=== PATIENT | female | born 1970 | race Caucasian/White ===

== ENCOUNTER 2017-09-02 08:46 | Day surgery (SDC) | payer SELFPAY ==
[2017-08-27 10:13] LABS: HEMATOCRIT 35.1 % (36.0-47.0); HEMOGLOBIN 12.3 g/dL (12.0-15.5); HGB HCT DIFFERENCE 1.8; MEAN CORPUSCULAR HEMOGLOBIN 34.1 pg (27.0-33.4); MEAN CORPUSCULAR HGB CONC 35.1 g/dL (32.0-36.0); MEAN CORPUSCULAR VOLUME 97 fl (80-97); RED CELL DISTRIBUTION WIDTH 12.6 % (11.5-14.0); WHITE BLOOD COUNT 8.6 10^3/uL (4.0-10.5)
[2017-08-27 10:46] LABS: ANION GAP 14 (5-19); BLOOD UREA NITROGEN 7 mg/dL (7-20); CALCIUM 9.4 mg/dL (8.4-10.2); CARBON DIOXIDE 19 mmol/L (22-30); CHLORIDE 103 mmol/L (98-107); GLUCOSE 81 mg/dL (75-110); POTASSIUM 4.4 mmol/L (3.6-5.0); SODIUM 136.3 mmol/L (137-145)
--- NOTE | 2017-08-27 12:40 | RADIOLOGY REPORT (SQ) ---
EXAM DESCRIPTION: CHEST PA/LATERAL COMPLETED DATE/TIME: 08/27/2017 11:01 am REASON FOR STUDY: PRE OP COMPARISON: None. NUMBER OF VIEWS: Two view. TECHNIQUE: Frontal and lateral radiographic views of the chest acquired. LIMITATIONS: None. FINDINGS: LUNGS AND PLEURA: No opacities, masses or pneumothorax. No pleural effusion. MEDIASTINUM AND HILAR STRUCTURES: No masses or contour abnormalities. HEART AND VASCULATURE: Heart normal size. No evidence for failure. BONY STRUCTURES: Old healed rib fracture right 5th lateral rib. Old healed rib fractures left 6th a nd 9th lateral ribs. HARDWARE: None. OTHER: No other significant finding. IMPRESSION: . No active cardiopulmonary disease. Old bilateral healed rib fractures. TECHNICAL DOCUMENTATION: JOB ID: [id number] [employer]- All Rights Reserved
[~2017-09-02 08:46] MED LIST: DEXTROSE 5%-LACTATED RINGERS 1,000 ML IV PRN; LACTATED RINGERS 1000 ML IV PRN; LIDOCAINE 0.5% INJ-PF (5 MG/ML) 50 ML SDV SUBCUT PRN; LIDOCAINE 4% TRANSPARENT DRESSING 5 GM KIT TP PRN
[2017-09-02] MEDS ORDERED: CLINDAMYCIN 900 MG/D5W RTU 50 ML IV PRN (09:31)
[2017-09-02] MEDS ORDERED: LIDOCAINE 1%/EPINEPHRINE INJ 20 ML VIAL ONE (10:06)
[2017-09-02] MEDS ORDERED: MICROFIBRILLAR COLLAGEN 1 GM PACK ONE (10:06)
[2017-09-02] MEDS ORDERED: METHYLENE BLUE 50 MG/10 ML AMPULE ONE (10:06)
[2017-09-02] MEDS ORDERED: SUCCINYLCHOLINE CHLORIDE INJ 200 MG/10 ML VIAL ONE (10:48)
[2017-09-02] MEDS ORDERED: ONDANSETRON HCL INJ/PF 4 MG/2 ML SDV ONE (10:48)
[2017-09-02] MEDS ORDERED: LIDOCAINE 2% INJ-PF (20 MG/ML) 10 ML AMPUL ONE (10:48)
[2017-09-02] MEDS ORDERED: DEXAMETHASONE SOD PHOSPHATE INJ 4 MG/1 ML VIAL ONE (10:48)
--- NOTE | 2017-09-02 11:40 | RADIOLOGY REPORT (SQ) ---
EXAM DESCRIPTION: NM LYMPHATICS/LYMPH GLANDS COMPLETED DATE/TIME: 09/02/2017 11:12 am REASON FOR STUDY: RT BREAST CANCER, SENTINAL NODE IMAGING C50.911 MALIGNANT NEOPLASM OF UNSP SITE O F RIGHT FEMALE JANNET COMPARISON: None. RADIONUCLIDE AND DOSE: 537 microcuries TC-[id number] - [employer]. The route of agent administration: Subcutaneous in the skin. TECHNIQUE: The skin of the right breast was prepped in sterile fashion. The radiopharmaceutical was administered in equally divided doses in the periareolar breast, from 6 o'clock to the 12 o'clock po sition LIMITATIONS: None. FINDINGS: Images demonstrate activity at the injection site. There is migration of activity towards the right axilla. [place] node marked on the patient's skin. IMPRESSION: ADMINISTRATION OF RADIOPHARMACEUTICAL FOR SENTINEL LYMPH NODE EVALUATION. TECHNICAL DOCUMENTATION: JOB ID: [id number] [employer]- All Rights Reserved
[2017-09-02] MEDS ORDERED: FENTANYL CITRATE INJ/PF 100 MCG/2 ML AMPUL ONE (12:40)
[2017-09-02] MEDS ORDERED: ACETAMINOPHEN 100 ML IV ONE (12:41)
[2017-09-02] MEDS ORDERED: HYDROMORPHONE HCL INJ/PF 2 MG/ML AMPULE ONE (12:41)
[2017-09-02] MEDS ORDERED: PROPOFOL INJ 200 MG/20 ML VIAL IV ONE (12:41)
[2017-09-02] MEDS ORDERED: MIDAZOLAM 2 MG/2 ML INJ ONE (12:41)
[2017-09-02] MEDS ORDERED: SCOPOLAMINE HYDROBROMIDE 1.5 MG PATCH.TD72 ONE (12:48)
[2017-09-02] MEDS ORDERED: LIDOCAINE 2% INJ-PF (20 MG/ML) 2 ML AMPUL ONE (14:08)
[2017-09-02] MEDS ORDERED: PROMETHAZINE HCL INJ 25 MG/1 ML VIAL IV PRN (14:19)
[2017-09-02] MEDS ORDERED: MORPHINE SULFATE 10 MG/ML INJ IV PRN (14:19)
[2017-09-02] MEDS ORDERED: FENTANYL CITRATE INJ/PF 100 MCG/2 ML AMPUL IV PRN ×3 (14:19)
[2017-09-02] MEDS ORDERED: DIPHENHYDRAMINE HCL 50 MG/ML VIAL IV PRN (14:19)
[2017-09-02] MEDS ORDERED: MEPERIDINE HCL/PF INJ 25 MG/1 ML DISP.SYRIN IV PRN (14:19)
--- NOTE | 2017-09-02 15:26 | PDOC DISCHARGE SUMMARY ---
Discharge Summary (SDC) - Discharge Final Diagnosis: Right breast cancer Date of Surgery: 09/02/17 Discharge Date: 09/02/17 Condition: Stable Treatment or Instructions: [facility] [address] [place] [id number] Care Instructions Following Your Mastectomy Activities: Resume normal activities when you feel comfortable. It is best to remain as active as possible to speed your recovery. It is common to experience some fatigue after surgery and you may find that short naps are helpful. Avoid strenuous activity such as weight lifting, tennis, etc at your surgical site for two weeks. Perform gentle arm exercises daily and do not favor your operative arm to due increased risk of mobility issues postoperatively. No driving for 7 days after surgery. Do not drive if you are taking pain medication other than Tylenol or Ibuprofen. No swimming, tub baths or soaking in a hot tub for 4 weeks. There are no dietary restrictions. Do not smoke as this impairs wound healing. Surgical Site care: Remove your dressing 48 hours after surgery. Leave the steri-strips underneath in place. You may shower after removing the dressing to include washing the wound with soap and water using your hands. Do not scrub the incision. Pat the area dry with a towel. You do not need to recover the wound although some patients find that they feel more comfortable using a light dressing for a few days to absorb any minimal drainage which may occur. Many patients also find that keeping a dressing around the drain exit site is helpful to absorb any drainage which may leak around the tubing. If you use a dressing in this manner change it at least every day. Do not use heating pad or apply an ice pack to the operative site. You may apply deodorant if you are careful to avoid getting it on the wound itself. Empty the bulbs attached to the drain every 12 hours and measure the fluid output separately from each drain. Please also strip each drain each time you empty it to prevent clogging. Keep a record of the output and bring this record with you each time you come to the office for postoperative care. A drain is ready to be removed when its output is 30 mL per 24 hours per drain for 2 consecutive days. Please call the office to inform our staff that you need to come in for drain removal. Medications: Take Motrin (ibuprofen) 600 mg to 800 mg every 8 hours around the clock. You may taper this medication as you experience less pain. Take narcotic pain control such as Tylenol #3 or Percocet one to tablets every six hours as needed for breakthrough pain. Do not take over the counter Tylenol if you are taking either Tylenol #3 or Percocet. Again, you cannot drive while taking narcotic pain medication. Resume all of your normal prescription medications after your surgery unless instructed otherwise. You may experience constipation after surgery while taking pain medications. If using a narcotic on a regular basis, take a stool softener such as Colace twice a day. It is helpful to stay hydrated by drinking lots of fluids. Walking is also helpful and is good exercise after surgery. If you need extra help, use Milk of Magnesia according to the directions on the package. Follow-up: Call our office at to make a follow-up appointment in 10-14 days. Your doctor will call to discuss the pathology report with you as soon as it is available. Concerns: If you had a sentinel lymph node biopsy with your mastectomy, your urine may have a greenish discoloration. This is normal and will resolve as the blue dye slowly leaves your system. If you notice significant leakage around the drains , this is not normal. The drains may be clogged. Please call our office to come in immediately for the drains to be checked. Some bruising may occur and will go away over time. If you have a fever of 101.5 or greater, chills, redness at the incision site, excessive drainage from your wound or severe pain not relieved by pain medication, call your doctor. A physician is available 24 hours a day 7 days a week in addition to regular office hours. If problems arise after normal office hours please call the hospital at . Please call if you have any questions or concerns. Prescriptions: Oxycodone HCl/Acetaminophen [Percocet 5-325 mg Tablet] 1 tab PO Q6 PRN #20 tab PRN Reason: Referrals: AIDA MOISE MD [ACTIVE STAFF] - Discharge Diet: As Tolerated Discharge Activity: No Lifting/Push/Pulling, Walk Frequently Report the Following to Your Physician Immediately: Fever over 101 Degrees, Unusual Bleeding, Redness, Swelling
--- NOTE | 2017-09-02 15:27 | Operative Report ---
Operative Report DATE OF SURGERY: 09/02/17 PREOPERATIVE DIAGNOSIS: Invasive ductal carcinoma right breast, ER positive, IL positive, HER-2 negative POSTOPERATIVE DIAGNOSIS: Same OPERATION: 1. Right mastectomy with drain placement. 2. [place] lymph node biopsy right axilla 3. 3. Lymph node biopsy right axilla 4( non-sentinel lymph nodes) SURGEON: AIDA CUMMINGS COTTAGE CHEESE MAKER: JACQUELINE PRICE ANESTHESIA: GA TISSUE REMOVED OR ALTERED: Right breast; multiple sentinel nodes; probable non- sentinel lymph nodes COMPLICATIONS: None ESTIMATED BLOOD LOSS: 5 cc INTRAOPERATIVE FINDINGS: See below PROCEDURE: Patient was seen in the preop holding area with the right breast was marked. She underwent lymphoscintigraphy of the right breast and axilla with successful mapping of double lymph nodes in the right axilla. The patient was taken directly to the operating room where she underwent general anesthesia. The right axilla was exposed, the right breast and axilla were prepped and draped in sterile fashion. Approximately 3 cc of concentrated methylene blue was injected into the right breast, intradermal, 10 o'clock position air areolar border. Surgical plan and surgical timeout were conducted. Markings were made on the skin in elliptical fashion for standard right mastectomy. The skin was anesthetized with 1% plain lidocaine. The breast was excised in elliptical fashion as marked with a #10 blade. Superior and inferior skin flaps were raised, taking the level of the dissection down to the infraclavicular area superiorly, parasternal tissue medially, and the serratus anterior muscle inferiorly. The breast was taken off of the chest wall using electrocautery, taking the superficial pectoralis fascia with it. Retraction was applied to the lateral flap, and the loose filmy tissue was taken down between the lateral flap and the tail of García. We now began the sentinel lymph node harvest. Using the neoprobe as a guide, and the successful blue dye mapping, we proceeded to harvest 3 level 1 sentinel lymph nodes. The first had an in vivo count of 11,953 and an ex vivo count of 4959. The sentinel node was blue and hot, and of average size less than a centimeter. The second sentinel lymph node identified in the same area, 1, was also hot and blue. In vivo count was 2859 and an ex vivo count of 13,656. Attached to this average appearing lymph node was a cluster of enlarged lymph nodes that felt more substantive and matted compared to the previously harvested first 2 sentinel lymph nodes. We elected to remove this cluster of lymph nodes and in fact one was bivalved on the back table. It appeared to have a fatty limb and a early normal cortex. The specimen is a conglomerate was sent as non-sentinel lymph nodes right axilla and touch prep was performed by pathologist Dr. Hi. We spoke to her and she informed us that the lymph nodes appeared on touch prep to be benign. We proceeded to harvest a third level 1 sentinel lymph node which is very small blue and hot with an in vivo count of 1180 and an ex vivo count of 5685. It was sent as the third lymph node from the axilla. The mastectomy specimen was taken out of the axilla from its final attachments labeled with a long suture in the lateral position short suture in the superior position and sent to Dr. Hi fresh he looked at it and concluded that the tumor was within the specimen, with the closest margin approximately 5 mm from the posterior wall which would be against the pectoralis major. For the tumor was felt to be encapsulated within the target specimen and no further resection was indicated. A drain was placed in the inferior skin flap laterally, large Terence secured to the skin with 2-0 Prolene suture, skin flaps elevated, then closed under a mild to moderate amount of tension with 2-0 Vicryl and a 2-0 running Vicryl as well. Skin glue was applied. Patient tolerated the procedure well, extubated and taken recovery in stable condition. The physician clerical assistant, Ms. Belcher, provided assistance during this case by: Assisting with port insertion, retracting tissue, instillation of local anesthesia and closure of skin incisions.
[2017-09-02] MEDS ORDERED: OXYCODONE-ACETAMINOPHEN 5-325 MG TABLET PO PRN (15:30)
[2017-09-02] MEDS: FENTANYL CITRATE INJ/PF 100 MCG/2 ML AMPUL ONE ×2 (15:30→15:35)
[2017-09-02] MEDS ORDERED: ONDANSETRON HCL INJ/PF 4 MG/2 ML SDV IV PRN (15:31)
[2017-09-02 18:32] VITALS: BP 108/71
== END 2017-09-02 18:00 | disposition home or self-care (01) ==
LOC: OROUT 08:46
PROVIDERS: ATTEND Surgery
PROC: 07B50ZX Excision of Right Axillary Lymphatic, Open Approach, Diagnostic (ICD-10-PCS; 2017-09-02)
PROC: 0HTT0ZZ Resection of Right Breast, Open Approach (ICD-10-PCS; principal; 2017-09-02 12:00)
DX: C50.911 Malignant neoplasm of unspecified site of right female breast (principal); F17.210 Nicotine dependence, cigarettes, uncomplicated; Z88.0 Allergy status to penicillin
CPT/HCPCS: 36415; 85027; 81025; 80048; 88309 ×2; 88331 ×2; 71020; 78195; 19307; A9520; J2250; J1100; J3010; J3490 ×3; J0330; J2405; J2704; J0131; Q9968; 1610; J1170

== ENCOUNTER 2017-11-21 12:53 | Emergency (ER) | payer SELFPAY ==
[2017-11-21 13:14] VITALS: BP 111/74
[2017-11-21] MEDS ORDERED: NORMAL SALINE 1000 ML 1,000 ML IV ONE (13:19)
[2017-11-21] MEDS ORDERED: VANCOMYCIN HCL INJ 1000 MG VIAL IV ONE (13:26)
--- NOTE | 2017-11-21 13:30 | ER Document Report ---
ED Medical Screen (RME) - General Chief Complaint: Leg Swelling Stated Complaint: LEFT LEG PAIN Time Seen by Provider: 11/21/17 13:18 TRAVEL OUTSIDE OF THE [place] IN LAST 30 DAYS: No - HPI Patient complains to provider of: left foot red/painful Onset: Last week Notes: 11/21/17 13:28 She presents with swollen erythematous tender left foot. She states it started last week. She denies a known injury to it. She also complains of calf swelling and tenderness. No nausea vomiting diarrhea or known fevers. 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 I have greeted and performed a rapid initial assessment of this patient. A comprehensive ED assessment and evaluation of the patient, analysis of test results and completion of the medical decision making process will be conducted by additional ED providers. PHYSICAL EXAMINATION: Right foot is extremely swollen tender erythematous and warm. Sensation is intact. There is no open wound noted. Erythema ends at the ankle joint. There is swelling and tenderness to the left lower extremity below the knee and into the calf area with mild tenderness to palpation. - Related Data Allergies/Adverse Reactions: Penicillins Allergy (Verified 11/21/17 12:54) ketorolac tromethamine [From Toradol] Adverse Reaction (Verified 11/21/17 12:54) itching bees Allergy (Uncoded 09/02/17 09:24) Past Medical History - Social History Chew tobacco use (# tins/day): No Frequency of alcohol use: Occasional Drug Abuse: None - Past Medical History Cardiac Medical History: Denies: Hx Coronary Artery Disease, Hx Heart Attack, Hx Hypertension Pulmonary Medical History: Reports: Hx Bronchitis, Hx COPD, Hx Pneumonia Denies: Hx Asthma, Hx Tuberculosis Neurological Medical History: Denies: Hx Cerebrovascular Accident, Hx Seizures Renal/ Medical History: Denies: Hx Peritoneal Dialysis Musculoskeltal Medical History: Denies Hx Arthritis Psychiatric Medical History: Denies: Hx Depression Past Surgical History: Reports: Hx Orthopedic Surgery - right foot, Hx Tubal Ligation. Denies: Hx Pacemaker - Immunizations Hx Diphtheria, Pertussis, Tetanus Vaccination: Yes History of Influenza Vaccine for 07/2017 - 12/2017 Season: No Physical Exam - Vital signs Vitals: Temp Pulse Resp BP Pulse Ox 97.9 F 92 16 86/64 L 99 11/21/17 12:59 11/21/17 12:59 11/21/17 12:59 11/21/17 12:59 11/21/17 12:59 Course - Vital Signs Vital signs: Temp Pulse Resp BP Pulse Ox 97.9 F 90 18 111/74 97 11/21/17 12:59 11/21/17 13:13 11/21/17 13:13 11/21/17 13:13 11/21/17 13:13
[2017-11-21] MEDS ORDERED: IBUPROFEN 800 MG TABLET PO ONE (13:43)
--- NOTE | 2017-11-21 13:50 | ER Document Report ---
ED General - General Chief Complaint: Leg Swelling Stated Complaint: LEFT LEG PAIN Time Seen by Provider: 11/21/17 13:18 Mode of Arrival: Ambulatory Information source: Patient Notes: Patient presents emergency department with complaints of left foot pain radiating up her left leg. She reports symptoms started approximately 1 week ago. She reports swelling and redness started on Thursday. She denies injury. She reports the pain started after she was moving. She doesn't know if she hurt her foot but the pain started after that. She denies f/v/d. Reports recent mastectomy in September. History of IVDA 9 years ago. She was seen by dr Webb yesterday but did not mention her foot to him. TRAVEL OUTSIDE OF THE [place] IN LAST 30 DAYS: No - HPI Onset: Last week Onset/Duration: Persistent Quality of pain: Achy Severity: Severe Pain Level: 5 Associated symptoms: None Exacerbated by: Denies Relieved by: Denies Similar symptoms previously: No Recently seen / treated by doctor: No - Related Data Allergies/Adverse Reactions: Penicillins Allergy (Verified 11/21/17 12:54) ketorolac tromethamine [From Toradol] Adverse Reaction (Verified 11/21/17 12:54) itching bees Allergy (Uncoded 09/02/17 09:24) Past Medical History - General Information source: Patient Last Menstrual Period: 9 years ago menopause - Social History Smoking Status: Current Every Day Smoker Chew tobacco use (# tins/day): No Frequency of alcohol use: Occasional Drug Abuse: None Family History: Reviewed & Not Pertinent Patient has suicidal ideation: No Patient has homicidal ideation: No - Past Medical History Cardiac Medical History: Denies: Hx Coronary Artery Disease, Hx Heart Attack, Hx Hypertension Pulmonary Medical History: Reports: Hx Bronchitis, Hx COPD, Hx Pneumonia Denies: Hx Asthma, Hx Tuberculosis Neurological Medical History: Denies: Hx Cerebrovascular Accident, Hx Seizures Renal/ Medical History: Denies: Hx Peritoneal Dialysis Malignancy Medical History: Reports: Hx Breast Cancer GI Medical History: Reports: Hx Hepatitis Musculoskeltal Medical History: Denies Hx Arthritis Psychiatric Medical History: Denies: Hx Depression Past Surgical History: Reports: Hx Mastectomy, Hx Orthopedic Surgery - right foot, Hx Tubal Ligation. Denies: Hx Pacemaker - Immunizations Hx Diphtheria, Pertussis, Tetanus Vaccination: Yes Review of Systems - Review of Systems Notes: Review HPI for review of systems., All other systems negative Physical Exam - Vital signs Vitals: Temp Pulse Resp BP Pulse Ox 97.9 F 92 16 86/64 L 99 11/21/17 12:59 11/21/17 12:59 11/21/17 12:59 11/21/17 12:59 11/21/17 12:59 - Notes Notes: PHYSICAL EXAMINATION: GENERAL: Well-appearing and in no acute distress HEAD: Atraumatic, normocephalic. EYES: Pupils equal round extraocular movements intact, sclera anicteric, conjunctiva are normal. ENT: nares patent Moist mucous membranes. NECK: Normal range of motion, supple without lymphadenopathy LUNGS: CTAB and equal. No wheezes rales or rhonchi. HEART: Regular rate and rhythm without murmurs ABDOMEN: Soft, no tenderness. No guarding, no rebound EXTREMITIES: Normal range of motion No cyanosis. left foot distally warm, + erythema, swollen, +2 pitting edema up to her ankle NEUROLOGICAL: Cranial nerves grossly intact. Normal sensory/motor exams. PSYCH: Normal mood, normal affect. SKIN: Warm, Dry, normal turgor, no rashes or lesions noted, no open wounds - Extremities General upper extremity: Normal inspection, Nontender General lower extremity: Tender Calf: Tender Ankle: Edema Foot: Tender, Edema - decreased pedal pulse - Skin Skin Temperature: Warm Skin Moisture: Dry Skin Color: Normal Character of irregularity: Erythematous Irregularity with: Swelling, Tenderness - no open wounds noted, no cuts/ laceration/needle sticks, Warmth Course - Re-evaluation Re-evalutation: 11/21/17 17:03 WBC 11.5, Lactic 1.5, pt left foot swollen/erythemic/warm, PT Updated on labs, need for admit. she declines. pt left foot is warm, swollen erythema. Pt has pmh of ivdu, she reports she has not been using IVD again, reports a friend gave her percocet. Pt instructed on infection, potential for infection to spread , possible loss of foot/leg or if infection spreads. she still declines admission. dr mohamud consulted. she will talk with patient 11/21/17 17:26 Patient is refusing to be admitted. Reports she just wants to leave. Declines antibiotics. She was offered pain medication to stay for IV antibiotics, she declined I will still write patient a prescription for antibiotics instruct her on the potential of losing her foot and infection spreading with possible as a result 11/21/17 pt was standing in doorway of room, again requested pt to stay and be admitted. she declined, ambulated without problems. - Vital Signs Vital signs: Temp Pulse Resp BP Pulse Ox 97.9 F 90 18 111/74 97 11/21/17 12:59 11/21/17 13:13 11/21/17 13:13 11/21/17 13:13 11/21/17 13:13 - Laboratory Result Diagrams: 11/21/17 13:54 11/21/17 15:57 Laboratory results interpreted by me: 11/21/17 11/21/17 11/21/17 13:54 14:58 15:57 WBC 11.5 H Eosinophils % 6.9 H Absolute Eosinophils 0.8 H Sodium 134.3 L BUN 6 L Urine Blood MODERATE H Ur Leukocyte Esterase MODERATE H - Diagnostic Test Radiology reviewed: Image reviewed, Reports reviewed - neg doppler- no dvt, neg foot xray- no osteomylitis. Discharge - Discharge Clinical Impression: left foot lower leg swelling pain, Cellulitis of left foot Condition: Stable Disposition: AGAINST MEDICAL ADVICE Instructions: Cellulitis ([facility]), Clindamycin ([facility]) Additional Instructions: *You have been evaluated for cellulitis of your left foot *You have declined admission. There is a potential that infection may spread and you may end up having your foot amputated. Or the infection may spread to your bloodstream which may result in your . *Take antibiotics as prescribed. *Keep your foot/leg elevated *Monitor your foot for signs of increasing infection such as increasing pain, redness, swelling, warmth *Follow up with a primary care provider within 2 days *Or Return to ED tomorrow for recheck or earlier for signs of increasing infection, worsening condition, changes, needs Prescriptions: Clindamycin HCl 450 mg PO QID #60 capsule
--- NOTE | 2017-11-21 14:26 | RADIOLOGY REPORT (SQ) ---
EXAM DESCRIPTION: FOOT LEFT COMPLETE COMPLETED DATE/TIME: 11/21/2017 2:07 pm REASON FOR STUDY: swelling/pain/erythema, osteo? COMPARISON: None. NUMBER OF VIEWS: Three views. TECHNIQUE: AP, lateral and oblique radiographic images acquired of the left foot. LIMITATIONS: None. FINDINGS: MINERALIZATION: Normal. BONES: No acute fracture or dislocation. No worrisome bone lesions. JOINTS: No effusions. SOFT TISSUES: Diffuse soft tissue swelling in the forefoot. No foreign body. OTHER: No other significant finding. IMPRESSION: No evidence of osteomyelitis. TECHNICAL DOCUMENTATION: JOB ID: [id number] [employer]- All Rights Reserved
[2017-11-21 14:36] LABS: ABSOLUTE BASOPHILS # (AUTO) 0.1 10^3/uL (0.0-0.2); ABSOLUTE EOSINOPHILS # (AUTO) 0.8 10^3/uL (0.0-0.6); ABSOLUTE LYMPHOCYTES (AUTO) 4.7 10^3/uL (0.5-4.7); ABSOLUTE MONOCYTES (AUTO) 0.6 10^3/uL (0.1-1.4); ABSOLUTE NEUT (AUTO) 5.3 10^3/uL (1.7-8.2); BASOPHILS % (AUTO) 1.2 % (0-2); EOSINOPHILS % (AUTO) 6.9 % (0-6); HEMOGLOBIN 14.5 g/dL (12.0-15.5); LYMPHOCYTES % (AUTO) 40.4 % (13-45); MEAN CORPUSCULAR HEMOGLOBIN 32.2 pg (27.0-33.4); MEAN CORPUSCULAR HGB CONC 34.4 g/dL (32.0-36.0); MEAN CORPUSCULAR VOLUME 94 fl (80-97); MONOCYTES % (AUTO) 5.5 % (3-13); PLATELET COUNT 248 10^3/uL (150-450); RED BLOOD COUNT 4.48 10^6/uL (3.72-5.28); RED CELL DISTRIBUTION WIDTH 12.8 % (11.5-14.0); TOTAL CELLS COUNTED % (AUTO) 100 %; WHITE BLOOD COUNT 11.5 10^3/uL (4.0-10.5)
--- NOTE | 2017-11-21 15:13 | RADIOLOGY REPORT (SQ) ---
EXAM DESCRIPTION: VENOUS UNILATERAL LOWER COMPLETED DATE/TIME: 11/21/2017 3:01 pm REASON FOR STUDY: swollen left LE COMPARISON: None. TECHNIQUE: Dynamic and static olmedo scale and color images acquired of the left leg venous system. Se lected spectral images acquired with additional compression and augmentation maneuvers. The contralat eral common femoral vein and saphenofemoral junction were also imaged. Images stored on PACS. LIMITATIONS: None. FINDINGS: COMMON FEMORAL: Normal phasicity, compression and augmentation. No visualized echogenic ma terial on olmedo scale. No defects on color images. FEMORAL: Normal compression and augmentation. No visualized echogenic material on olmedo scale. No defe cts on color images. POPLITEAL: Normal compression, augmentation. No visualized echogenic material on olmedo scale. No defec ts on color images. CALF VESSELS: Normal compression, augmentation. No visualized echogenic material on olmedo scale. No de fects on color images. GSV and SSV: Normal compression, augmentation. No visualized echogenic material on olmedo scale. No def ects on color images. ANY DEEP VENOUS INSUFFICIENCY: Not evaluated. ANY EVIDENCE OF POPLITEAL CYST: No. OTHER: No other significant finding. CONTRALATERAL COMMON FEMORAL VEIN AND SAPHENOFEMORAL JUNCTION: Normal phasicity, compression and augmentation. No visualized echogenic material on olmedo scale. No de fects on color images. IMPRESSION: NO EVIDENCE OF DVT OR SVT IN THE LEFT LEG. TECHNICAL DOCUMENTATION: JOB ID: [id number] [employer]- All Rights Reserved
[2017-11-21 15:26] LABS: APPEARANCE,URINE CLEAR; BILIRUBIN,URINE NEGATIVE (NEGATIVE); COLOR,URINE STRAW; GLUCOSE, URINE NEGATIVE (NEGATIVE); KETONES,URINE NEGATIVE (NEGATIVE); LEUKOCYTE ESTERASE,URINE MODERATE (NEGATIVE); NITRITE,URINE NEGATIVE (NEGATIVE); PROTEIN,URINE NEGATIVE (NEGATIVE); URINE SPECIFIC GRAVITY 1.002; UROBILINOGEN,URINE NEGATIVE mg/dL (<2.0)
[2017-11-21 15:37] LABS: URINE AMPHETAMINES SCREEN NEGATIVE; URINE BARBITURATES SCREEN NEGATIVE; URINE BENZODIAZEPINES SCREEN NEGATIVE; URINE COCAINE SCREEN NEGATIVE; URINE MARIJUANA (THC) SCREEN NEGATIVE; URINE METHADONE SCREEN NEGATIVE; URINE PHENCYCLIDINE SCREEN NEGATIVE
[2017-11-21 16:34] LABS: ALANINE AMINOTRANSFERASE 27 U/L (9-52); ALBUMIN 3.6 g/dL (3.5-5.0); ALCOHOL 15 mg/dL (NONE DETECTED); ALKALINE PHOSPHATASE 98 U/L (38-126); ANION GAP 9 (5-19); ASPARTATE AMINO TRANSFERASE 23 U/L (14-36); BILIRUBIN,DIRECT 0.3 mg/dL (0.0-0.4); BILIRUBIN,TOTAL 0.3 mg/dL (0.2-1.3); BLOOD UREA NITROGEN 6 mg/dL (7-20); CALCIUM 9.4 mg/dL (8.4-10.2); CARBON DIOXIDE 22 mmol/L (22-30); CHLORIDE 103 mmol/L (98-107); GLUCOSE 106 mg/dL (75-110); SODIUM 134.3 mmol/L (137-145); TOTAL PROTEIN 6.6 g/dL (6.3-8.2)
--- NOTE | 2017-11-21 17:38 | ER Document Report ---
Doctor's Note Notes: 11/21/17 17:36 Go back and speak with the patient as she does not want to be admitted for her foot infection. Patient is alert and oriented she does have capacity to make medical decisions. She states that she wants to go home in her right is here and she would like to be discharged immediately. I did tell her that her left foot infection was quite severe and that antibiotics by mouth may not be able to cure the infection. I stated that she needed to be admitted to the hospital and get intravenous antibiotics. Patient again refused. I did tell her that she has the risk of having the infection go throughout her body with resulting or getting her left foot cut off if the infection gets so severe that it cannot be cured. I even offered to control the patient's pain with narcotics if needed if she was agreeable to stay since she stated that she was in too much pain to stay in the hospital. Patient continued to refuse stating that she wanted to go home and be with her friends. I did tell her that it is of utmost importance to return to the emergency department if she has fevers if the infection gets worse if she is unable to get the prescription filled or tolerate the medication. I told her to please take the medication exactly as it was prescribed. Patient verbalized understanding. She continued to state she wanted to leave. Patient will be discharged AGAINST MEDICAL ADVICE mainly that of my advice as well as the nurse practitioners advice.
== END 2017-11-21 17:45 | disposition left against medical advice (07) ==
LOC: ER 12:53
DX: L03.116 Cellulitis of left lower limb (principal); M79.89 Other specified soft tissue disorders; M79.605 Pain in left leg; F17.200 Nicotine dependence, unspecified, uncomplicated
CPT/HCPCS: 99284; 96365; 96366; 36415; 87040; 80307 ×2; 85025; 80053; 81001; 83605; 93971; 73630; J7030; J3370

== ENCOUNTER 2017-11-22 20:39 | Inpatient (IN) | payer SELFPAY ==
--- NOTE | 2017-11-22 20:58 | ER Document Report ---
ED Medical Screen (RME) - General Chief Complaint: Foot pain/ cellulitis Stated Complaint: PAIN IN LEFT FOOT Time Seen by Provider: 11/22/17 20:55 Mode of Arrival: Wheelchair Information source: Patient Notes: 47-year-old female presents to ED for complaint of left foot and leg erythema swelling and pain. She states she was rushing to move out of her residence last Thursday and she thinks she might have hit her foot at some point. is started to swell by Thursday the pain was much worse the swelling was worked and the leg was red and hot. She states she came into the emergency room room yesterday she had blood work said she had a negative Doppler and there is no clot. States she was given some antibiotics and some IV fluids but she left AMA because she was laid back. Pain and nobody was given her anything for pain she states she has been taking ibuprofen. Foot is red warm to touch painful to palpation she does have pedal pulses. I have greeted and performed a rapid initial assessment of this patient. A comprehensive ED assessment and evaluation of the patient, analysis of test results and completion of medical decision making process will be conducted by an additional ED providers. TRAVEL OUTSIDE OF THE [place] IN LAST 30 DAYS: No - Related Data Allergies/Adverse Reactions: Penicillins Allergy (Verified 11/21/17 12:54) ketorolac tromethamine [From Toradol] Adverse Reaction (Verified 11/21/17 12:54) itching bees Allergy (Uncoded 09/02/17 09:24) Past Medical History - Past Medical History Cardiac Medical History: Denies: Hx Coronary Artery Disease, Hx Heart Attack, Hx Hypertension Pulmonary Medical History: Reports: Hx Bronchitis, Hx COPD, Hx Pneumonia Denies: Hx Asthma, Hx Tuberculosis Neurological Medical History: Denies: Hx Cerebrovascular Accident, Hx Seizures Renal/ Medical History: Denies: Hx Peritoneal Dialysis Malignancy Medical History: Reports: Hx Breast Cancer GI Medical History: Reports: Hx Hepatitis Musculoskeltal Medical History: Denies Hx Arthritis Psychiatric Medical History: Denies: Hx Depression Infectious Medical History: Reports: Hx Hepatitis Past Surgical History: Reports: Hx Mastectomy, Hx Orthopedic Surgery - right foot, Hx Tubal Ligation. Denies: Hx Pacemaker - Immunizations Hx Diphtheria, Pertussis, Tetanus Vaccination: Yes History of Influenza Vaccine for 07/2017 - 12/2017 Season: No Physical Exam - Vital signs Vitals: Temp Pulse Resp BP Pulse Ox 97.8 F 94 12 111/72 97 11/22/17 20:50 11/22/17 20:50 11/22/17 20:50 11/22/17 20:50 11/22/17 20:50 Course - Vital Signs Vital signs: Temp Pulse Resp BP Pulse Ox 97.8 F 94 12 111/72 97 11/22/17 20:50 11/22/17 20:50 11/22/17 20:50 11/22/17 20:50 11/22/17 20:50
[2017-11-22 21:48] LABS: ALANINE AMINOTRANSFERASE 24 U/L (9-52); ALBUMIN 3.9 g/dL (3.5-5.0); ALKALINE PHOSPHATASE 99 U/L (38-126); ANION GAP 12 (5-19); ASPARTATE AMINO TRANSFERASE 29 U/L (14-36); BILIRUBIN,DIRECT 0.2 mg/dL (0.0-0.4); BILIRUBIN,TOTAL 0.2 mg/dL (0.2-1.3); BLOOD UREA NITROGEN 2 mg/dL (7-20); CALCIUM 9.4 mg/dL (8.4-10.2); CARBON DIOXIDE 23 mmol/L (22-30); CHLORIDE 100 mmol/L (98-107); GLUCOSE 91 mg/dL (75-110); POTASSIUM 4.1 mmol/L (3.6-5.0)
[2017-11-22 21:51] LABS: ABSOLUTE BASOPHILS # (AUTO) 0.1 10^3/uL (0.0-0.2); ABSOLUTE EOSINOPHILS # (AUTO) 0.8 10^3/uL (0.0-0.6); ABSOLUTE MONOCYTES (AUTO) 0.4 10^3/uL (0.1-1.4); ABSOLUTE NEUT (AUTO) 4.4 10^3/uL (1.7-8.2); BASOPHILS % (AUTO) 1.1 % (0-2); EOSINOPHILS % (AUTO) 7.9 % (0-6); HEMATOCRIT 41.4 % (36.0-47.0); HEMOGLOBIN 14.3 g/dL (12.0-15.5); LYMPHOCYTES % (AUTO) 41.4 % (13-45); MEAN CORPUSCULAR HEMOGLOBIN 32.1 pg (27.0-33.4); MEAN CORPUSCULAR HGB CONC 34.5 g/dL (32.0-36.0); MEAN CORPUSCULAR VOLUME 93 fl (80-97); MONOCYTES % (AUTO) 4.5 % (3-13); PLATELET COUNT 259 10^3/uL (150-450); RED BLOOD COUNT 4.45 10^6/uL (3.72-5.28); RED CELL DISTRIBUTION WIDTH 12.2 % (11.5-14.0); SEGMENTED NEUTROPHILS % (AUTO) 45.1 % (42-78); TOTAL CELLS COUNTED % (AUTO) 100 %; WHITE BLOOD COUNT 9.7 10^3/uL (4.0-10.5)
[2017-11-22 21:55] LABS: APPEARANCE,URINE CLEAR; BILIRUBIN,URINE NEGATIVE (NEGATIVE); COLOR,URINE STRAW; GLUCOSE, URINE NEGATIVE (NEGATIVE); KETONES,URINE NEGATIVE (NEGATIVE); LEUKOCYTE ESTERASE,URINE TRACE (NEGATIVE); NITRITE,URINE NEGATIVE (NEGATIVE); PROTEIN,URINE NEGATIVE (NEGATIVE); URINE SPECIFIC GRAVITY 1.002; UROBILINOGEN,URINE NEGATIVE mg/dL (<2.0)
[2017-11-23] MEDS ORDERED: NORMAL SALINE 1000 ML 1,000 ML IV ONE ×2 (00:05→08:30)
[2017-11-23] MEDS ORDERED: CEFEPIME 2 GM/D5W RTU 50 ML IV ONE (00:06)
[2017-11-23] MEDS ORDERED: VANCOMYCIN HCL INJ 1000 MG VIAL IV ONE (00:06)
--- NOTE | 2017-11-23 00:08 | ER Document Report ---
ED General - General Chief Complaint: Leg Swelling Stated Complaint: PAIN IN LEFT FOOT Time Seen by Provider: 11/22/17 20:55 Mode of Arrival: Wheelchair Notes: Patient is a 47-year-old female with a remote history of breast cancer, not currently on chemotherapy as she is in remission who presents with 4-5 days of progressively worsening pain and erythema of her left lower extremity. Patient was seen in the emergency department yesterday, had a normal venous Doppler of the extremity as well as a normal x-ray. She was encouraged to remain and be hospitalized but refused and left AGAINST MEDICAL ADVICE. She reports that she did not fill her clindamycin prescription. She returns today stating that the spreading redness has worsened and the pain has increased. She describes a severe, constant, burning, throbbing pain to the left lower extremity. Nothing improves or worsens her pain. She denies any history of similar symptoms in the past. She reports she has had a fever up to 101 at home. She states she feels generally unwell and nauseated but has not had any vomiting. TRAVEL OUTSIDE OF THE [place] IN LAST 30 DAYS: No - Related Data Allergies/Adverse Reactions: Penicillins Allergy (Verified 11/21/17 12:54) ketorolac tromethamine [From Toradol] Adverse Reaction (Verified 11/21/17 12:54) itching bees Allergy (Uncoded 09/02/17 09:24) Past Medical History - General Information source: Patient - Social History Smoking Status: Current Every Day Smoker Frequency of alcohol use: None Drug Abuse: None Lives with: Family Family History: Reviewed & Not Pertinent Patient has suicidal ideation: No Patient has homicidal ideation: No - Past Medical History Cardiac Medical History: Denies: Hx Coronary Artery Disease, Hx Heart Attack, Hx Hypertension Pulmonary Medical History: Reports: Hx Bronchitis, Hx COPD, Hx Pneumonia Denies: Hx Asthma, Hx Tuberculosis Neurological Medical History: Denies: Hx Cerebrovascular Accident, Hx Seizures Renal/ Medical History: Denies: Hx Peritoneal Dialysis Malignancy Medical History: Reports: Hx Breast Cancer GI Medical History: Reports: Hx Hepatitis Musculoskeltal Medical History: Denies Hx Arthritis Psychiatric Medical History: Denies: Hx Depression Infectious Medical History: Reports: Hx Hepatitis Past Surgical History: Reports: Hx Mastectomy, Hx Orthopedic Surgery - right foot, Hx Tubal Ligation. Denies: Hx Pacemaker - Immunizations Hx Diphtheria, Pertussis, Tetanus Vaccination: Yes Review of Systems - Review of Systems Notes: Constitutional: Positive for fever. HENT: Negative for sore throat. Eyes: Negative for visual changes. Cardiovascular: Negative for chest pain. Respiratory: Negative for shortness of breath. Gastrointestinal: Negative for abdominal pain, vomiting or diarrhea. Genitourinary: Negative for dysuria. Musculoskeletal: Negative for back pain. Skin: Positive ative for rash. Neurological: Negative for headaches, weakness or numbness. 10 point ROS negative except as marked above and in HPI. Physical Exam - Vital signs Vitals: Temp Pulse Resp BP Pulse Ox 97.8 F 94 12 111/72 97 11/22/17 20:50 11/22/17 20:50 11/22/17 20:50 11/22/17 20:50 11/22/17 20:50 Interpretation: Normal Notes: PHYSICAL EXAMINATION: GENERAL: Appears generally unwell but in no acute distress HEAD: Atraumatic, normocephalic. EYES: Pupils equal round and reactive to light, extraocular movements intact, sclera anicteric, conjunctiva are normal. ENT: nares patent, oropharynx clear without exudates. Moderately dry mucous membranes. NECK: Normal range of motion, supple without lymphadenopathy LUNGS: Breath sounds clear to auscultation bilaterally and equal. No wheezes rales or rhonchi. HEART: Regular tachycardia without murmurs ABDOMEN: Soft, nontender, normoactive bowel sounds. No guarding, no rebound. No masses appreciated. EXTREMITIES: Extensive swelling to the left medial ankle but no limited range of motion at the knee or hip. Patient is unable to perform plantar dorsiflexion at the ankle. NEUROLOGICAL: No focal neurological deficits. Moves all extremities spontaneously and on command. PSYCH: Normal mood, normal affect. SKIN: Warm, Dry, normal turgor, diffuse erythema of the left lower extremity extending from the dorsum of the foot to the mid thigh in a streaking fashion Course - Re-evaluation Re-evalutation: 11/23/17 00:07 Patient presents ill in appearance, initial triage vitals do not appear to correlate with the acute nature of the patient when I assess her. I had a repeat set of vitals completed and patient was noted to be hypotensive and tachycardic. IV access was established, IV fluids and broad-spectrum antibodies have been initiated. Patient is an extensive cellulitis of her left lower extremity. She did not fill the antibiotic prescription with which she was sent home yesterday. A venous Doppler study was done yesterday did not demonstrate any evidence of a DVT. She will require hospitalization for broad- spectrum antibiotic by IV infusion given that she does meet sepsis criteria and is hypotensive. 11/23/17 00:40 Patient is improving with IV fluids, assessment of the leg in its entirety now the patient has been undressed shows that she has streaking redness going up to her mid thigh. Will contact Dr. Degroot for hospitalization - Vital Signs Vital signs: Temp Pulse Resp BP Pulse Ox 99.1 F 100 15 130/92 H 100 11/23/17 00:01 11/23/17 00:01 11/23/17 00:21 11/23/17 00:21 11/23/17 00:21 - Laboratory Result Diagrams: 11/22/17 21:10 11/22/17 21:10 Laboratory results interpreted by me: 11/22/17 11/22/17 11/22/17 21:10 21:10 21:10 Eosinophils % 7.9 H Absolute Eosinophils 0.8 H Sodium 135.0 L BUN 2 L Creatinine 0.50 L Urine Blood MODERATE H Ur Leukocyte Esterase TRACE H Discharge - Discharge Clinical Impression: Cellulitis of leg, left Sepsis Qualifiers: Sepsis type: sepsis due to unspecified organism Qualified Code(s): A41.9 - Sepsis, unspecified organism Condition: Fair Disposition: ADMITTED INPATIENT Admitting Provider: Yessenia Degroot Unit Admitted: [facility]
[2017-11-23] MEDS ORDERED: AZTREONAM INJ 1 GM VIAL IV ONE (00:23)
[2017-11-23] MEDS ORDERED: CLINDAMYCIN PHOSPHATE INJ 300 MG/2 ML SDV IV ONE (00:24)
[2017-11-23] MEDS: FENTANYL CITRATE INJ/PF 100 MCG/2 ML AMPUL IV PRN ×2 (00:55→03:05)
[2017-11-23] MEDS ORDERED: ONDANSETRON HCL INJ/PF 4 MG/2 ML SDV IV PRN ×2 (01:10→15:30)
[2017-11-23] MEDS ORDERED: MAG HYDROX/AL HYDROX/SIMETH SUSP 30 ML UDCUP PO PRN (01:10)
[2017-11-23] MEDS ORDERED: IPRATROPIUM/ALBUTEROL 0.5-2.5 MG/3 ML AMPUL NEB PRN (01:10)
[2017-11-23] MEDS ORDERED: VANCOMYCIN HCL 0 MG in DEXTROSE 5%-WATER 250 ML IV NR (01:15)
[2017-11-23] MEDS ORDERED: LORAZEPAM INJ 2 MG/1 ML VIAL IV PRN (02:47)
[2017-11-23] MEDS ORDERED: NICOTINE 14 MG/24 HR PATCH.TD24 TD ONE (03:00)
[2017-11-23] MEDS ORDERED: THIAMINE HCL 100 MG, FOLIC ACID 1 MG in NORMAL SALINE 250 ML IV ONE (03:00)
[2017-11-23] MEDS: CLINDAMYCIN 900 MG/D5W RTU 50 ML IV SCH ×3 (03:04→19:25)
[2017-11-23] MEDS: NORMAL SALINE 1000 ML 1,000 ML IV SCH ×2 (03:04→05:11)
[2017-11-23] MEDS: HEPARIN SOD (PORCINE) 5,000 UNIT/ML 1 ML SYRINGE SUBCUT SCH ×3 (05:12→21:16)
[2017-11-23] MEDS ORDERED: FOLIC ACID INJ 5 MG/1 ML 10 ML VIAL IV ONE (05:15)
[2017-11-23] MEDS ORDERED: THIAMINE HCL INJ 200 MG/2 ML VIAL IV ONE (05:15)
--- NOTE | 2017-11-23 05:30 | PDOC H&P ---
History of Present Illness Admission Date/PCP: 11/23/17 01:10 Patient complains of: Left foot pain and swelling History of Present Illness: EMERSON HICKEY is a 47 year old female with a past medical history of breast cancer, COPD, current tobacco, alcohol and remote IV drug abuse. Patient presents with 1 week of redness and pain to the distal left foot prompting her to seek evaluation emergency room 48 hours receiving IV vancomycin but refused admission. She was prescribed clindamycin but was unable to fill, she returns with worsening erythema and pain and is referred to the hospitalist for admission. Past Medical History Cardiac Medical History: Denies: Coronary Artery Disease, Myocardial Infarction, Hypertension Pulmonary Medical History: Reports: Bronchitis, Chronic Obstructive Pulmonary Disease (COPD), Pneumonia Denies: Asthma, Tuberculosis Neurological Medical History: Denies: Seizures Malignancy Medical History: Reports: Breast Cancer GI Medical History: Reports: Hepatitis Musculoskeltal Medical History: Denies: Arthritis Psychiatric Medical History: Reports: Alcohol Dependency, Substance Abuse, Tobacco Dependency Denies: Depression Hematology: Denies: Anemia Past Surgical History Past Surgical History: Reports: Mastectomy, Orthopedic Surgery - right foot, Tubal Ligation Denies: Pacemaker Social History Lives with: Family Smoking Status: Current Every Day Smoker Frequency of Alcohol Use: Heavy - Admits to 6-12 beers per day and history of seizure Hx Recreational Drug Use: No Drugs: Cocaine - Admits remote dependence Hx Prescription Drug Abuse: No - Advance Directive Resuscitation Status: Full Code Family History Family History: COPD Parental Family History Reviewed: Yes Children Family History Reviewed: Yes Sibling(s) Family History Reviewed.: Yes Medication/Allergy Home Medications: Oxycodone HCl/Acetaminophen [Percocet 5-325 mg Tablet] 1 tab PO Q6 PRN #20 tab 09/02/17 Clindamycin HCl 450 mg PO QID #60 capsule 11/21/17 Allergies/Adverse Reactions: Penicillins Allergy (Verified 11/21/17 12:54) ketorolac tromethamine [From Toradol] Adverse Reaction (Verified 11/21/17 12:54) itching bees Allergy (Uncoded 09/02/17 09:24) Review of Systems Constitutional: ABSENT: chills, fever(s), headache(s), weight gain, weight loss Eyes: ABSENT: visual disturbances Ears: ABSENT: hearing changes Cardiovascular: ABSENT: chest pain, dyspnea on exertion, edema, orthropnea, palpitations Respiratory: ABSENT: cough, hemoptysis Gastrointestinal: ABSENT: abdominal pain, constipation, diarrhea, hematemesis, hematochezia, nausea, vomiting Genitourinary: ABSENT: dysuria, hematuria Musculoskeletal: ABSENT: joint swelling Integumentary: ABSENT: rash, wounds Neurological: ABSENT: abnormal gait, abnormal speech, confusion, dizziness, focal weakness, syncope Psychiatric: ABSENT: anxiety, depression, homidical ideation, suicidal ideation Endocrine: ABSENT: cold intolerance, heat intolerance, polydipsia, polyuria Hematologic/Lymphatic: ABSENT: easy bleeding, easy bruising Physical Exam Vital Signs: Temp Pulse Resp BP Pulse Ox 99.1 F 100 14 84/69 L 93 11/23/17 00:01 11/23/17 00:01 11/23/17 05:00 11/23/17 04:01 11/23/17 05:00 General appearance: PRESENT: cooperative, mild distress Head exam: PRESENT: atraumatic, normocephalic Eye exam: PRESENT: conjunctiva pink, EOMI, PERRLA. ABSENT: scleral icterus Ear exam: PRESENT: normal external ear exam Mouth exam: PRESENT: moist, tongue midline Neck exam: ABSENT: carotid bruit, JVD, lymphadenopathy, thyromegaly Respiratory exam: PRESENT: crackles, prolonged expiratory phas, tachypnea. ABSENT: accessory muscle use, retraction Cardiovascular exam: PRESENT: RRR. ABSENT: diastolic murmur, rubs, systolic murmur Pulses: PRESENT: normal dorsalis pedis pul Vascular exam: PRESENT: normal capillary refill GI/Abdominal exam: PRESENT: normal bowel sounds, soft. ABSENT: distended, guarding, mass, organolmegaly, rebound, tenderness Rectal exam: PRESENT: deferred Extremities exam: PRESENT: joint swelling - Swelling and erythema of the left foot third and fourth toes, pedal edema, tenderness, +1 edema Neurological exam: PRESENT: alert, awake, oriented to person, oriented to place , oriented to time, oriented to situation, CN II-XII grossly intact. ABSENT: motor sensory deficit Psychiatric exam: PRESENT: appropriate affect, normal mood. ABSENT: homicidal ideation, suicidal ideation Skin exam: PRESENT: dry, intact, warm. ABSENT: cyanosis, rash Results Laboratory Results: 11/23/17 01:20 Lactic Acid 1.3 Assessment & Plan - Diagnosis (1) Cellulitis of leg, left Plan: Telemetry bed admission, empiric antibiotics with coverage of MRSA given evidence for tinea pedis. Follow-up CBC and blood culture. (2) Sepsis Qualifiers: Sepsis type: sepsis due to unspecified organism Qualified Code(s): A41.9 - Sepsis, unspecified organism Is this a current diagnosis for this admission?: Yes Plan: Secondary to #1, IV fluid challenge empiric antibiotics follow-up CBC and blood culture (3) COPD (chronic obstructive pulmonary disease) Is this a current diagnosis for this admission?: Yes Plan: Incentive spirometry, albuterol and Atrovent (4) Tobacco dependence Is this a current diagnosis for this admission?: Yes Plan: Tobacco Dependence patient received tobacco cessation counseling and offered nicotine replacement options (5) Alcohol dependence Is this a current diagnosis for this admission?: Yes Plan: Thiamine and folate ordered, as needed Ativan patient does give history of DTs - Time Time Spent: 50 to 70 Minutes - Inpatient Certification Medical Necessity: Need Close Monitoring Due to Risk of Patient Decompensation
[2017-11-23 07:19] LABS: ABSOLUTE BASOPHILS # (AUTO) 0.1 10^3/uL (0.0-0.2); ABSOLUTE EOSINOPHILS # (AUTO) 0.5 10^3/uL (0.0-0.6); ABSOLUTE LYMPHOCYTES (AUTO) 2.8 10^3/uL (0.5-4.7); ABSOLUTE MONOCYTES (AUTO) 0.3 10^3/uL (0.1-1.4); ABSOLUTE NEUT (AUTO) 3.3 10^3/uL (1.7-8.2); EOSINOPHILS % (AUTO) 6.6 % (0-6); HEMOGLOBIN 12.3 g/dL (12.0-15.5); LYMPHOCYTES % (AUTO) 39.8 % (13-45); MEAN CORPUSCULAR HEMOGLOBIN 32.1 pg (27.0-33.4); MEAN CORPUSCULAR HGB CONC 34.2 g/dL (32.0-36.0); MEAN CORPUSCULAR VOLUME 94 fl (80-97); MONOCYTES % (AUTO) 4.9 % (3-13); PLATELET COUNT 191 10^3/uL (150-450); RED BLOOD COUNT 3.85 10^6/uL (3.72-5.28); RED CELL DISTRIBUTION WIDTH 12.3 % (11.5-14.0); SEGMENTED NEUTROPHILS % (AUTO) 47.7 % (42-78); TOTAL CELLS COUNTED % (AUTO) 100 %
[2017-11-23 07:30] LABS: CALCIUM 8.3 mg/dL (8.4-10.2); GLUCOSE 100 mg/dL (75-110); POTASSIUM 4.2 mmol/L (3.6-5.0)
[2017-11-23 07:32] LABS: BLOOD UREA NITROGEN < 2 mg/dL (7-20)
[2017-11-23 07:40] LABS: ANION GAP 5 (5-19); CARBON DIOXIDE 21 mmol/L (22-30); CHLORIDE 109 mmol/L (98-107)
[2017-11-23] MEDS ORDERED: VANCOMYCIN HCL 1,000 MG in DEXTROSE 5%-WATER 250 ML IV ONE (08:30)
--- NOTE | 2017-11-23 09:09 | Progress Note ---
Provider Note Provider Note: Patient was seen this morning. Patient was noted to have low blood pressures. Feel that this is most likely secondary to pain medication. Will discontinue fentanyl and write for morphine 1 mg to 4 hours as needed for pain. Patient ordered for 1 L bolus. Patient's maintenance fluids will be changed 150 cc an hour. Patient was setting up in bed appeared in no acute distress answering questions appropriately. Patient's left lower extremity with warmth with erythema noted at dorsal aspect of foot. Will check ultrasound of lower extremity to evaluate for DVT.
[2017-11-23] MEDS: MORPHINE SULFATE 10 MG/ML INJ IV PRN ×2 (10:16→19:27)
[2017-11-23] MEDS: NORMAL SALINE 1000 ML 1,000 ML IV PRN (10:17)
[2017-11-23] MEDS: DOCUSATE SODIUM 100 MG CAPSULE PO SCH ×2 (10:17→19:27)
[2017-11-23] MEDS ORDERED: INFLUENZA ADLT QUAD (36MOS+) 2017-18 VAC 0.5 ML SYR IM PRN (15:11)
[2017-11-23] MEDS: VANCOMYCIN HCL 1,000 MG in DEXTROSE 5%-WATER 250 ML IV SCH ×2 (15:18→21:15)
[2017-11-23] MEDS: ACETAMINOPHEN 325 MG TABLET PO PRN (17:05)
[2017-11-24] MEDS: NORMAL SALINE 1000 ML 1,000 ML IV PRN (00:41)
[2017-11-24] MEDS: MORPHINE SULFATE 10 MG/ML INJ IV PRN ×5 (00:42→22:09)
[2017-11-24] MEDS: CLINDAMYCIN 900 MG/D5W RTU 50 ML IV SCH ×3 (01:18→17:46)
[2017-11-24] MEDS: HEPARIN SOD (PORCINE) 5,000 UNIT/ML 1 ML SYRINGE SUBCUT SCH ×3 (05:03→22:09)
[2017-11-24] MEDS: VANCOMYCIN HCL 1,000 MG in DEXTROSE 5%-WATER 250 ML IV SCH ×2 (05:03→15:55)
[2017-11-24 05:12] LABS: ABSOLUTE BASOPHILS # (AUTO) 0.1 10^3/uL (0.0-0.2); ABSOLUTE EOSINOPHILS # (AUTO) 0.4 10^3/uL (0.0-0.6); ABSOLUTE LYMPHOCYTES (AUTO) 2.6 10^3/uL (0.5-4.7); ABSOLUTE MONOCYTES (AUTO) 0.4 10^3/uL (0.1-1.4); ABSOLUTE NEUT (AUTO) 2.9 10^3/uL (1.7-8.2); BASOPHILS % (AUTO) 1.3 % (0-2); EOSINOPHILS % (AUTO) 5.7 % (0-6); HEMATOCRIT 35.9 % (36.0-47.0); HEMOGLOBIN 12.1 g/dL (12.0-15.5); MEAN CORPUSCULAR HEMOGLOBIN 31.8 pg (27.0-33.4); MEAN CORPUSCULAR HGB CONC 33.8 g/dL (32.0-36.0); MEAN CORPUSCULAR VOLUME 94 fl (80-97); MONOCYTES % (AUTO) 5.6 % (3-13); PLATELET COUNT 164 10^3/uL (150-450); RED BLOOD COUNT 3.82 10^6/uL (3.72-5.28); SEGMENTED NEUTROPHILS % (AUTO) 46.4 % (42-78); TOTAL CELLS COUNTED % (AUTO) 100 %; WHITE BLOOD COUNT 6.2 10^3/uL (4.0-10.5)
[2017-11-24 05:38] LABS: BLOOD UREA NITROGEN 5 mg/dL (7-20); CALCIUM 8.8 mg/dL (8.4-10.2); GLUCOSE 91 mg/dL (75-110)
[2017-11-24 05:57] LABS: ANION GAP 4 (5-19)
[2017-11-24 05:58] LABS: CARBON DIOXIDE 24 mmol/L (22-30); CHLORIDE 103 mmol/L (98-107); SODIUM 130.5 mmol/L (137-145)
[2017-11-24] MEDS: NICOTINE 14 MG/24 HR PATCH.TD24 TD SCH (10:10)
[2017-11-24] MEDS: DOCUSATE SODIUM 100 MG CAPSULE PO SCH ×2 (10:10→17:47)
[2017-11-24] MEDS: THIAMINE HCL 100 MG, FOLIC ACID 1 MG in NORMAL SALINE 250 ML IV SCH (13:46)
--- NOTE | 2017-11-24 16:22 | PDOC PROGRESS REPORT ---
Subjective Progress Note for:: 11/24/17 Subjective:: Pt states that she is feeling better. Pt states that her foot pain is better. Reason For Visit: SEPSIS,LEFT LEG CELLULITIS Physical Exam Vital Signs: Temp Pulse Resp BP Pulse Ox 98.4 F 68 14 93/65 L 98 11/24/17 12:19 11/24/17 12:19 11/24/17 12:19 11/24/17 12:19 11/24/17 12:19 Intake & Output 11/23/17 11/24/17 11/25/17 06:59 06:59 06:59 Intake Total 2516 414 Output Total 1352 900 Balance 1164 -486 Weight 58.6 kg 64.3 kg General appearance: PRESENT: no acute distress, well-developed, well-nourished Head exam: PRESENT: atraumatic, normocephalic Eye exam: PRESENT: conjunctiva pink, EOMI. ABSENT: scleral icterus Ear exam: PRESENT: normal external ear exam Mouth exam: PRESENT: moist, tongue midline Neck exam: ABSENT: carotid bruit, JVD, lymphadenopathy, thyromegaly Respiratory exam: PRESENT: clear to auscultation addis. ABSENT: rales, rhonchi, wheezes Cardiovascular exam: PRESENT: RRR. ABSENT: diastolic murmur, rubs, systolic murmur Pulses: PRESENT: normal dorsalis pedis pul Vascular exam: PRESENT: normal capillary refill GI/Abdominal exam: PRESENT: normal bowel sounds, soft. ABSENT: distended, guarding, mass, organolmegaly, rebound, tenderness Rectal exam: PRESENT: deferred Extremities exam: PRESENT: full ROM. ABSENT: calf tenderness, clubbing, pedal edema Musculoskeletal exam: PRESENT: full ROM Neurological exam: PRESENT: alert, awake, oriented to person, oriented to place , oriented to time, oriented to situation, CN II-XII grossly intact. ABSENT: motor sensory deficit Psychiatric exam: PRESENT: appropriate affect, normal mood. ABSENT: homicidal ideation, suicidal ideation Skin exam: PRESENT: other - erythema of foot improving. Results Laboratory Results: 11/24/17 04:41 11/24/17 13:37 11/24/17 11/24/17 11/24/17 04:41 04:41 13:37 WBC 6.2 RBC 3.82 Hgb 12.1 Hct 35.9 L MCV 94 MCH 31.8 MCHC 33.8 RDW 12.0 Plt Count 164 Seg Neutrophils % 46.4 Lymphocytes % 41.0 Monocytes % 5.6 Eosinophils % 5.7 Basophils % 1.3 Absolute Neutrophils 2.9 Absolute Lymphocytes 2.6 Absolute Monocytes 0.4 Absolute Eosinophils 0.4 Absolute Basophils 0.1 Sodium 130.5 L Potassium 4.0 Chloride 103 Carbon Dioxide 24 Anion Gap 4 L BUN 5 L Creatinine 0.47 L 0.48 L Est GFR ( Amer) > 60 > 60 Est GFR (Non-Af Amer) > 60 > 60 Glucose 91 Calcium 8.8 Assessment & Plan - Diagnosis (1) Alcohol dependence Is this a current diagnosis for this admission?: Yes Plan: Will continue to monitor for ETOH withdrawal. (2) COPD (chronic obstructive pulmonary disease) Is this a current diagnosis for this admission?: No Plan: No issues (3) Tobacco dependence Is this a current diagnosis for this admission?: Yes Plan: Encourage Discontinuation of tobacco products. (4) Cellulitis of left foot Is this a current diagnosis for this admission?: Yes Plan: Will continue Clindamycin. Pt improving. (5) Sepsis Qualifiers: Sepsis type: sepsis due to unspecified organism Qualified Code(s): A41.9 - Sepsis, unspecified organism Is this a current diagnosis for this admission?: Yes Plan: Ruled out - Time Time Spent with patient: 25-34 minutes
[2017-11-25] MEDS: CLINDAMYCIN 900 MG/D5W RTU 50 ML IV SCH ×3 (01:09→17:30)
[2017-11-25] MEDS: HEPARIN SOD (PORCINE) 5,000 UNIT/ML 1 ML SYRINGE SUBCUT SCH ×2 (05:26→17:27)
[2017-11-25] MEDS: MORPHINE SULFATE 10 MG/ML INJ IV PRN (05:35)
[2017-11-25] MEDS: NORMAL SALINE 1000 ML 1,000 ML IV PRN (05:41)
[2017-11-25 06:04] LABS: ABSOLUTE BASOPHILS # (AUTO) 0.1 10^3/uL (0.0-0.2); ABSOLUTE EOSINOPHILS # (AUTO) 0.3 10^3/uL (0.0-0.6); ABSOLUTE LYMPHOCYTES (AUTO) 2.3 10^3/uL (0.5-4.7); ABSOLUTE MONOCYTES (AUTO) 0.3 10^3/uL (0.1-1.4); ABSOLUTE NEUT (AUTO) 2.6 10^3/uL (1.7-8.2); BASOPHILS % (AUTO) 1.4 % (0-2); EOSINOPHILS % (AUTO) 5.3 % (0-6); HEMOGLOBIN 12.1 g/dL (12.0-15.5); LYMPHOCYTES % (AUTO) 41.1 % (13-45); MEAN CORPUSCULAR HEMOGLOBIN 31.6 pg (27.0-33.4); MEAN CORPUSCULAR HGB CONC 34.5 g/dL (32.0-36.0); MEAN CORPUSCULAR VOLUME 92 fl (80-97); MONOCYTES % (AUTO) 5.4 % (3-13); PLATELET COUNT 171 10^3/uL (150-450); RED BLOOD COUNT 3.81 10^6/uL (3.72-5.28); RED CELL DISTRIBUTION WIDTH 12.4 % (11.5-14.0); SEGMENTED NEUTROPHILS % (AUTO) 46.8 % (42-78); TOTAL CELLS COUNTED % (AUTO) 100 %; WHITE BLOOD COUNT 5.5 10^3/uL (4.0-10.5)
[2017-11-25 06:19] LABS: ANION GAP 5 (5-19); BLOOD UREA NITROGEN 4 mg/dL (7-20); CALCIUM 8.9 mg/dL (8.4-10.2); CARBON DIOXIDE 25 mmol/L (22-30); CHLORIDE 103 mmol/L (98-107); GLUCOSE 91 mg/dL (75-110)
[2017-11-25] MEDS: ACETAMINOPHEN 325 MG TABLET PO PRN (09:13)
[2017-11-25] MEDS: NICOTINE 14 MG/24 HR PATCH.TD24 TD SCH (09:14)
[2017-11-25] MEDS: DOCUSATE SODIUM 100 MG CAPSULE PO SCH ×2 (09:14→17:28)
[2017-11-25] MEDS: THIAMINE HCL 100 MG, FOLIC ACID 1 MG in NORMAL SALINE 250 ML IV SCH (12:51)
--- NOTE | 2017-11-25 15:32 | RADIOLOGY REPORT (SQ) ---
EXAM DESCRIPTION: MRI LT LOWER EXTREMITY WITHOUT COMPLETED DATE/TIME: 11/25/2017 3:15 pm REASON FOR STUDY: Left foot concern for osteo COMPARISON: None. TECHNIQUE: Multiplanar imaging of the left forefoot to include fat and fluid sensitive sequences. LIMITATIONS: None. FINDINGS: BONE MARROW: No marrow signal alteration. Specifically no marrow replacement or marrow ed rishi. No evidence for osteomyelitis. No cortical break through. SOFT TISSUES: Edema in the soft tissues. No organized fluid collection. OTHER: No other significant finding. IMPRESSION: Cellulitis. No evidence of osteomyelitis. TECHNICAL DOCUMENTATION: JOB ID: [id number] [employer]- All Rights Reserved
--- NOTE | 2017-11-25 18:00 | PDOC DISCHARGE SUMMARY ---
General - Admit/Disc Date/PCP Admission Date/Primary Care Provider: 11/23/17 01:10 Discharge Date: 11/25/17 - Discharge Diagnosis (1) Alcohol dependence Is this a current diagnosis for this admission?: Yes Summary: No issues with with alcohol withdrawal during hospitalization. (2) COPD (chronic obstructive pulmonary disease) Is this a current diagnosis for this admission?: No Summary: Acute issues (3) Tobacco dependence Is this a current diagnosis for this admission?: Yes Summary: Discontinue tobacco use (4) Cellulitis of left foot Is this a current diagnosis for this admission?: Yes Summary: MRI demonstrates no evidence of osteo-. Patient has responded well on clindamycin. (5) Sepsis Is this a current diagnosis for this admission?: Yes Summary: Ruled out - Additional Information Resuscitation Status: Full Code Discharge Diet: Cardiac Discharge Activity: Activity As Tolerated Prescriptions: Clindamycin HCl [Cleocin HCl] 600 mg PO Q6 #80 capsule Neomy Sulf/Polymyx B Sulf/Hc [Cortisporin Otic Susp] 4 drop LFT_EAR QID 10 Days #1 bottle Home Medications: Clindamycin HCl [Cleocin HCl] 600 mg PO Q6 #80 capsule 11/25/17 Neomy Sulf/Polymyx B Sulf/Hc [Cortisporin Otic Susp] 4 drop LFT_EAR QID 10 Days #1 bottle 11/25/17 History of Present Illness Patient complains of: Left foot cellulitis History of Present Illness: EMERSON HICKEY is a 47 year old female presented to hospital with complaint of left foot swelling and pain. Patient was found to have cellulitis of the left foot. Patient MRI that demonstrated no evidence of osteo-. Patient also complained of left ear pain and was diagnosed with otitis externa and placed on appropriate treatment. Patient had no further issues. Hospital Course Hospital Course: EMERSON HICKEY is a 47 year old female presented to hospital with complaint of left foot swelling and pain. Patient was found to have cellulitis of the left foot. Patient MRI that demonstrated no evidence of osteo-. Patient also complained of left ear pain and was diagnosed with otitis externa and placed on appropriate treatment. Patient had no further issues. Physical Exam Vital Signs: Temp Pulse Resp BP Pulse Ox 97.9 F 67 16 109/73 100 11/25/17 16:24 11/25/17 16:24 11/25/17 16:24 11/25/17 16:24 11/25/17 16:24 Intake & Output 11/24/17 11/25/17 11/26/17 06:59 06:59 06:59 Intake Total 2512 4809 1950 Output Total 1355 3700 Balance 1164 1129 1949 Weight 64.3 kg 65 kg General appearance: PRESENT: no acute distress, well-developed, well-nourished Head exam: PRESENT: atraumatic, normocephalic Eye exam: PRESENT: conjunctiva pink, EOMI. ABSENT: scleral icterus Ear exam: PRESENT: other - Left ear with trigger tenderness Mouth exam: PRESENT: moist, tongue midline Neck exam: ABSENT: carotid bruit, JVD, lymphadenopathy, thyromegaly Respiratory exam: PRESENT: clear to auscultation addis. ABSENT: rales, rhonchi, wheezes Cardiovascular exam: PRESENT: RRR. ABSENT: diastolic murmur, rubs, systolic murmur Pulses: PRESENT: normal dorsalis pedis pul Vascular exam: PRESENT: normal capillary refill GI/Abdominal exam: PRESENT: normal bowel sounds, soft. ABSENT: distended, guarding, mass, organolmegaly, rebound, tenderness Rectal exam: PRESENT: deferred Extremities exam: PRESENT: full ROM, other - Left foot with mild erythema. ABSENT: calf tenderness, clubbing, pedal edema Neurological exam: PRESENT: alert, awake, oriented to person, oriented to place , oriented to time, oriented to situation, CN II-XII grossly intact. ABSENT: motor sensory deficit Skin exam: PRESENT: other - Left foot with mild erythema Results Laboratory Results: 11/25/17 05:50 11/25/17 05:50 11/25/17 11/25/17 05:50 05:50 WBC 5.5 RBC 3.81 Hgb 12.1 Hct 35.0 L MCV 92 MCH 31.6 MCHC 34.5 RDW 12.4 Plt Count 171 Seg Neutrophils % 46.8 Lymphocytes % 41.1 Monocytes % 5.4 Eosinophils % 5.3 Basophils % 1.4 Absolute Neutrophils 2.6 Absolute Lymphocytes 2.3 Absolute Monocytes 0.3 Absolute Eosinophils 0.3 Absolute Basophils 0.1 Sodium 133.0 L Potassium 4.0 Chloride 103 Carbon Dioxide 25 Anion Gap 5 BUN 4 L Creatinine 0.51 L Est GFR ( Amer) > 60 Est GFR (Non-Af Amer) > 60 Glucose 91 Calcium 8.9 Impressions: Lower Extremity MRI 11/25/17 00:00 IMPRESSION: Cellulitis. No evidence of osteomyelitis. Plan Time Spent: Greater than 30 Minutes
[2017-11-25 18:30] VITALS: BP 91/62
== END 2017-11-25 19:00 | disposition home or self-care (01) | DRG 603 ==
LOC: ER 20:39 → EH 11-23 01:10 → 3N 11-23 18:39
PROVIDERS: ADMIT Internal Medicine; ATTEND Internal Medicine
PROC: 3E0234Z Introduction of Serum, Toxoid and Vaccine into Muscle, Percutaneous Approach (ICD-10-PCS; principal; 2017-11-25)
DX: L03.116 Cellulitis of left lower limb (principal); F10.20 Alcohol dependence, uncomplicated; J44.9 Chronic obstructive pulmonary disease, unspecified; F17.200 Nicotine dependence, unspecified, uncomplicated; H60.92 Unspecified otitis externa, left ear; Z85.3 Personal history of malignant neoplasm of breast; Z88.0 Allergy status to penicillin; Z88.8 Allergy status to other drugs, medicaments and biological substances; Z91.030 Bee allergy status; Z23 Encounter for immunization
CPT/HCPCS: 36415; 80048; 80053; 80202; 81001; 82565; 83605; 85025; 87040; 90686; 96361; 96374; 99284; J1644; J2270; J3010; J3370; J3411; J3490; J7030; J7050; J7060

== ENCOUNTER 2017-12-15 11:07 | Emergency (ER) | payer SELFPAY ==
[2017-12-15] MEDS ORDERED: OXYCODONE-ACETAMINOPHEN 5-325 MG TABLET PO ONE (11:47)
[2017-12-15] MEDS ORDERED: CLINDAMYCIN HCL 150 MG CAPSULE PO ONE (11:47)
--- NOTE | 2017-12-15 11:50 | ER Document Report ---
HPI - HPI Patient complains to provider of: Dental pain, finger Onset: Yesterday Onset/Duration: Gradual Quality of pain: Achy Pain Level: 5 Context: Patient states that she has dental pain to left upper jaw that started today. Patient states she woke up and her left cheek started to swell. Patient also reports yesterday that she attempted to SWAT a cat off of the counter and hit her hand on the counter injuring her right third finger. Associated Symptoms: Other - Finger injury, dental pain. denies: Fever Exacerbated by: Movement Relieved by: Denies Similar symptoms previously: Yes Recently seen / treated by doctor: No - ROS ROS below otherwise negative: Yes Systems Reviewed and Negative: Yes All other systems reviewed and negative - CONSTITUTIONAL Constitutional: DENIES: Fever - REPRODUCTIVE Reproductive: DENIES: : - MUSCULOSKELETAL Musculoskeletal: REPORTS: Extremity pain, Swelling - DERM Skin Color: Ecchymosis Skin Problems: None Past Medical History - General Information source: Patient - Social History Smoking Status: Current Every Day Smoker Smoking Education Provided: Yes Frequency of alcohol use: Occasional Drug Abuse: None Occupation: none Family History: COPD - Past Medical History Cardiac Medical History: Denies: Hx Coronary Artery Disease, Hx Heart Attack, Hx Hypertension Pulmonary Medical History: Reports: Hx Bronchitis, Hx COPD, Hx Pneumonia Denies: Hx Asthma, Hx Tuberculosis Neurological Medical History: Denies: Hx Cerebrovascular Accident, Hx Seizures Renal/ Medical History: Denies: Hx Peritoneal Dialysis Malignancy Medical History: Reports: Hx Breast Cancer GI Medical History: Reports: Hx Hepatitis Musculoskeltal Medical History: Denies Hx Arthritis Psychiatric Medical History: Denies: Hx Depression Infectious Medical History: Reports: Hx Hepatitis Past Surgical History: Reports: Hx Mastectomy, Hx Orthopedic Surgery - right foot, Hx Tubal Ligation. Denies: Hx Pacemaker - Immunizations Hx Diphtheria, Pertussis, Tetanus Vaccination: Yes Vertical Provider Document - CONSTITUTIONAL Agree With Documented VS: Yes Exam Limitations: No Limitations General Appearance: WD/WN, No Apparent Distress - INFECTION CONTROL TRAVEL OUTSIDE OF THE [place] IN LAST 30 DAYS: No - HEENT HEENT: Atraumatic, Normocephalic. negative: Pharyngeal Exudate, Pharyngeal Tenderness, Pharyngeal Erythema, Tympanic Membrane Red, Tympanic Membrane Bulging Mouth Diagram: 1 - Broken decayed teeth, tender swollen gingiva, no drainable abscess Notes: Subtle fullness to left maxillary area - NECK Neck: Normal Inspection, Supple. negative: Lymphadenopathy-Left, Lymphadenopathy-Right - RESPIRATORY Respiratory: Breath Sounds Normal, No Respiratory Distress O2 Sat by Pulse Oximetry: 98 - CARDIOVASCULAR Cardiovascular: Regular Rate, Regular Rhythm - BACK Back: Normal Inspection - MUSCULOSKELETAL/EXTREMETIES Musculoskeletal/Extremeties: MAEW - NEURO Level of Consciousness: Awake, Alert, Appropriate Motor/Sensory: No Motor Deficit - DERM Integumentary: Warm, Dry, No Rash Course - Re-evaluation Re-evalutation: 12/15/17 11:48 Controlled substance database reviewed. Encouraged to follow-up with dental care provider for further management. Patient strongly encouraged to get antibiotic filled and take as directed. - Vital Signs Vital signs: Temp Pulse Resp BP Pulse Ox 98.6 F 109 H 19 113/80 98 12/15/17 11:20 12/15/17 11:20 12/15/17 11:20 12/15/17 11:20 12/15/17 11:20 - Diagnostic Test Radiology reviewed: Image reviewed, Reports reviewed Procedures - Immobilization Right 3rd digit Pre-Proc Neuro Vasc Exam: Normal Immobilizer type: Other - lise tape Performed by: PCT Post-Proc Neuro Vasc Exam: Normal Alignment checked and good: Yes Discharge - Discharge Clinical Impression: Infected dental caries Finger sprain Qualifiers: Encounter type: initial encounter Finger: unspecified finger Qualified Code(s) : S63.619A - Unspecified sprain of unspecified finger, initial encounter Condition: Stable Disposition: HOME, SELF-CARE Instructions: Lise Taping (fingers) ([facility]), [facility], Clindamycin ([facility]), Oral Narcotic Medication ([facility]), Sprained Finger ([facility]), Toothache ([facility]) Additional Instructions: Return immediately for any new or worsening symptoms Followup with your primary care provider, call tomorrow to make a followup appointment Follow-up with a dental care provider Prescriptions: Acetaminophen with Codeine [Acetaminophen-Cod #3 Tablet] 1 each PO Q6 PRN #12 tablet PRN Reason: Clindamycin HCl [Cleocin 300 mg Capsule] 300 mg PO TID #21 capsule Forms: Smoking Cessation Education Referrals: [facility] [Provider Group] - Follow up tomorrow
--- NOTE | 2017-12-15 12:59 | RADIOLOGY REPORT (SQ) ---
EXAM DESCRIPTION: HAND RIGHT 3 VIEWS COMPLETED DATE/TIME: 12/15/2017 12:48 pm REASON FOR STUDY: r hand injury, struck counter COMPARISON: Right hand three views 07/04/2013 EXAM PARAMETERS: NUMBER OF VIEWS: Three views. TECHNIQUE: AP, lateral and oblique radiographic images acquired of the right hand. LIMITATIONS: None. FINDINGS: MINERALIZATION: Normal. BONES: Old healed distal right metacarpal metaphysis fracture. No acute fracture. In particular, no acute fracture of the 3rd (middle) finger is identified. JOINTS: There is soft tissue swelling surrounding the 3rd finger PIP joint. Very mild 3rd finger bridget nt space narrowing and bony spurring SOFT TISSUES: Soft tissue swelling 3rd finger PIP joint region OTHER: No other significant finding. IMPRESSION: Soft tissue swelling without underlying fracture, 3rd finger PIP joint region. Old healed boxer fracture distal 5th metacarpal TECHNICAL DOCUMENTATION: JOB ID: [id number] [email or web address]- All Rights Reserved Reading location - IP/workstation name: [email or web address]
[2017-12-15 13:42] VITALS: BP 150/86
== END 2017-12-15 13:42 | disposition home or self-care (01) ==
LOC: ER 11:07
DX: K04.7 Periapical abscess without sinus (principal); K02.9 Dental caries, unspecified; K08.89 Other specified disorders of teeth and supporting structures; S63.619A Unspecified sprain of unspecified finger, initial encounter; W22.8XXA Striking against or struck by other objects, initial encounter; Y93.89 Activity, other specified; F17.200 Nicotine dependence, unspecified, uncomplicated; J44.9 Chronic obstructive pulmonary disease, unspecified; Z85.3 Personal history of malignant neoplasm of breast
CPT/HCPCS: 99283

== ENCOUNTER → 2018-03-04 | Outpatient (CLI) | payer SELFPAY ==
[2018-03-04 17:41] LABS: ALANINE AMINOTRANSFERASE 30 U/L (9-52); ALBUMIN 4.2 g/dL (3.5-5.0); ALKALINE PHOSPHATASE 129 U/L (38-126); ANION GAP 11 (5-19); ASPARTATE AMINO TRANSFERASE 43 U/L (14-36); BILIRUBIN,DIRECT 0.2 mg/dL (0.0-0.4); BILIRUBIN,TOTAL 0.2 mg/dL (0.2-1.3); BLOOD UREA NITROGEN 6 mg/dL (7-20); CALCIUM 9.5 mg/dL (8.4-10.2); CARBON DIOXIDE 27 mmol/L (22-30); CHLORIDE 106 mmol/L (98-107); GLUCOSE 93 mg/dL (75-110); TOTAL PROTEIN 7.2 g/dL (6.3-8.2)
== END ==
LOC: OD 16:05
PROVIDERS: ATTEND Internal Medicine
DX: C50.211 Malignant neoplasm of upper-inner quadrant of right female breast (principal)
CPT/HCPCS: 36415; 80053

== ENCOUNTER 2018-12-25 01:54 | Emergency (ER) | payer MEDICAID ==
[2018-12-25] MEDS ORDERED: GABAPENTIN 300 MG CAPSULE PO ONE (03:40)
--- NOTE | 2018-12-25 03:44 | ER Document Report ---
ED General - General Chief Complaint: Chest Pain Stated Complaint: LEFT ARM PAIN Time Seen by Provider: 12/25/18 03:33 Primary Care Provider: ISAAC PEARSON MD [NO LOCAL MD] - Follow up in 3-5 days (call to make a follow up appointment) Notes: Patient is a pleasant 48-year-old female who presents with complaint of tingling and pain type sensation going down her arm and into the third fourth and fifth digits of her left hand. Patient says that she has been having these symptoms intermittently for over a year. She says in the last week or so they have been more constant. She says that she does have a known bulging disc in her neck and she has been told that she needs surgery on the disc but has not gone through with the surgery. She denies any new injuries to her neck. No new trauma. No weakness into the hand. Said symptoms are worse worse in the morning but improved on the day. She takes gabapentin 600 mill grams in the morning but does not take any throughout the rest of the day. No rash. No other complaints at this time. TRAVEL OUTSIDE OF THE [place] IN LAST 30 DAYS: No - Related Data Allergies/Adverse Reactions: Penicillins Allergy (Verified 12/15/17 11:08) ketorolac tromethamine [From Toradol] Adverse Reaction (Verified 12/15/17 11:08) itching bees Allergy (Uncoded 12/15/17 11:08) Past Medical History - Social History Smoking Status: Current Every Day Smoker Frequency of alcohol use: Occasional Drug Abuse: None Family History: COPD - Past Medical History Cardiac Medical History: Denies: Hx Coronary Artery Disease, Hx Heart Attack, Hx Hypertension Pulmonary Medical History: Reports: Hx Bronchitis, Hx COPD, Hx Pneumonia Denies: Hx Asthma, Hx Tuberculosis Neurological Medical History: Denies: Hx Cerebrovascular Accident, Hx Seizures Renal/ Medical History: Denies: Hx Peritoneal Dialysis Malignancy Medical History: Reports: Hx Breast Cancer GI Medical History: Reports: Hx Hepatitis Musculoskeletal Medical History: Denies Hx Arthritis Psychiatric Medical History: Denies: Hx Depression Infectious Medical History: Reports: Hx Hepatitis Past Surgical History: Reports: Hx Mastectomy, Hx Orthopedic Surgery - right foot, Hx Tubal Ligation. Denies: Hx Pacemaker - Immunizations Hx Diphtheria, Pertussis, Tetanus Vaccination: Yes Review of Systems - Review of Systems Notes: My Normal Review Basic REVIEW OF SYSTEMS: CONSTITUTIONAL : Denies fever, chills, or sweats. Denies recent illness. CARDIOVASCULAR: Denies chest pain. RESPIRATORY: Denies cough, cold, or chest congestion. Denies shortness of breath, difficulty breathing, or wheezing. MUSCULOSKELETAL: Denies neck or back pain or joint pain or swelling. SKIN: Denies rash or skin lesions. NEUROLOGICAL: Denies altered mental status or loss of consciousness. Denies headache. Denies weakness or paralysis or loss of use of either side. Denies problems with gait or speech. Numbness and pain type sensation going down left arm and into the third fourth and fifth digits of left hand. ALL OTHER SYSTEMS REVIEWED AND NEGATIVE. Physical Exam - Vital signs Vitals: Temp Pulse Resp BP Pulse Ox 98 F 89 16 114/78 95 12/25/18 02:31 12/25/18 02:31 12/25/18 02:31 12/25/18 02:31 12/25/18 02:31 - Notes Notes: General Appearance: Well nourished, alert, cooperative, no acute distress, no obvious discomfort. Well appearing. Vitals: reviewed, See vital signs table. Head: no swelling or tenderness to the head Eyes: PERRL, EOMI, Conjuctiva clear Neck: Some pain to palpation over left cervical paraspinal musculature. Extremities: strength 5/5 in all extremities, good pulses in all extremities, no pain to palpation of the arm itself. Some pain to palpation over left trapezius muscle and left cervical paraspinal musculature. Skin: warm, dry, appropriate color, no rash Neuro: speech clear, oriented x 3, normal affect, responds appropriately to questions. Course - Re-evaluation Re-evalutation: 12/25/18 05:45 This is the patient's history and symptoms I suspect most likely she is having cervical radiculopathy is causing the pain in numbness going into her left hand. She has been told before that she has a cervical disc is bulging and recommend surgery in the past. I will increase her gabapentin so that she is getting a dose in the evening as well. I will refer her to neurosurgery for reevaluation and further treatment. I encouraged her return to ER if she has worsening pain or numbness, any weakness to the hand, or if she has further concerns. Patient agrees with plan will be discharged home. Dictation of this chart was performed using voice recognition software; therefore, there may be some unintended grammatical errors. - Vital Signs Vital signs: Temp Pulse Resp BP Pulse Ox 98.1 F 82 18 110/78 95 12/25/18 04:04 12/25/18 04:04 12/25/18 04:04 12/25/18 04:04 12/25/18 04:04 - EKG Interpretation by Me Additional EKG results interpreted by me: 12/25/18 05:48 EKG shows sinus rhythm with rate of [address] segment elevation or depression. No ischemic T wave inversions. Pr Interval, QRS duration and QT intervals are within normal range. No further concerning findings. 12/25/18 05:49 Discharge - Discharge Clinical Impression: Left arm pain, Cervical radiculopathy Condition: Good Disposition: HOME, SELF-CARE Additional Instructions: I suspect your symptoms are being caused by a pinched nerve coming from her neck that is causing the pain. I will increase your Gabapentin to 600mg in the morning and 2300mg at night. please call the neurosurgeon, Dr. pearson, for a follow up appointment to discuss further interventions and treatment. Please return to the ER immediately if you have worsening pain, fevers, vomiting, or feel unwell. Prescriptions: Gabapentin [Neurontin 300 mg Capsule] 300 mg PO ASDIR PRN #30 capsule PRN Reason: Referrals: IASAC PEARSON MD [NO LOCAL MD] - Follow up in 3-5 days (call to make a follow up appointment)
[2018-12-25 04:05] VITALS: BP 110/78
--- NOTE | 2018-12-25 12:37 | EKG REPORT ---
SEVERITY:- NORMAL ECG - SINUS RHYTHM : Confirmed by: Katya Sanderson MD 25-Dec-2018 12:36:27
== END 2018-12-25 04:06 | disposition home or self-care (01) ==
LOC: ER 01:54
DX: M50.10 Cervical disc disorder with radiculopathy, unspecified cervical region (principal); Z79.899 Other long term (current) drug therapy; F17.200 Nicotine dependence, unspecified, uncomplicated; J44.9 Chronic obstructive pulmonary disease, unspecified; Z88.0 Allergy status to penicillin; Z91.030 Bee allergy status; Z85.3 Personal history of malignant neoplasm of breast
CPT/HCPCS: 93005; 99283; 93010; J3490

== ENCOUNTER 2019-03-10 12:33 | Emergency (ER) | payer MEDICAID ==
[2019-03-10] MEDS ORDERED: IBUPROFEN 400 MG TABLET PO ONE (13:18)
[2019-03-10] MEDS ORDERED: NORMAL SALINE 1000 ML 1,000 ML IV ONE (13:18)
--- NOTE | 2019-03-10 13:21 | ER Document Report ---
ED Medical Screen (RME) - General Chief Complaint: Pain Stated Complaint: NECK AND SHOULDER PAIN Time Seen by Provider: 03/10/19 13:11 Primary Care Provider: SIMON DUMONT MD [Primary Care Provider] - Follow up as needed Mode of Arrival: Wheelchair Notes: Patient reports chronic neck and back pain that she has daily but that states the pain worsened over the past several days. Patient states she had chills today and noticed a fever when the ambulance came to pick her up. Patient states she has been taking ibuprofen pretty regular over the past several days to help manage her pain symptoms. Patient was given Tylenol around 1215 and took 2 ibuprofen tablets just before EMS arrived today. Patient complains of swelling to the right lower leg and pain throughout the entire spine and neck area. Patient states she has had some numbness and both upper extremities. Patient states she had a headache a couple days ago but the headache is presently gone. I have greeted and performed a rapid initial assessment of this patient. A comprehensive ED assessment and evaluation of the patient, analysis of test results and completion of the medical decision making process will be conducted by additional ED providers. TRAVEL OUTSIDE OF THE [place] IN LAST 30 DAYS: No - Related Data Allergies/Adverse Reactions: Penicillins Allergy (Verified 03/10/19 13:05) ketorolac tromethamine [From Toradol] Adverse Reaction (Verified 03/10/19 13:05) itching bees Allergy (Uncoded 03/10/19 13:05) Past Medical History - Past Medical History Cardiac Medical History: Denies: Hx Coronary Artery Disease, Hx Heart Attack, Hx Hypertension Pulmonary Medical History: Reports: Hx Bronchitis, Hx COPD, Hx Pneumonia Denies: Hx Asthma, Hx Tuberculosis Neurological Medical History: Denies: Hx Cerebrovascular Accident, Hx Seizures Renal/ Medical History: Denies: Hx Peritoneal Dialysis Malignancy Medical History: Reports: Hx Breast Cancer GI Medical History: Reports: Hx Hepatitis Musculoskeltal Medical History: Denies Hx Arthritis Psychiatric Medical History: Denies: Hx Depression Infectious Medical History: Reports: Hx Hepatitis Past Surgical History: Reports: Hx Mastectomy, Hx Orthopedic Surgery - right foot, Hx Tubal Ligation. Denies: Hx Pacemaker - Immunizations Hx Diphtheria, Pertussis, Tetanus Vaccination: Yes History of Influenza Vaccine for 07/2017 - 12/2017 Season: No Physical Exam - Vital signs Vitals: Temp Pulse Resp BP Pulse Ox 103.0 F H 119 H 18 135/86 H 95 03/10/19 12:41 03/10/19 12:41 03/10/19 12:41 03/10/19 12:41 03/10/19 12:41 - General In distress: Mild Notes: Patient with spinal tenderness throughout entire cervical thoracic and lumbar spine. 2+ edema to right lower extremity Course - Vital Signs Vital signs: Temp Pulse Resp BP Pulse Ox 103.0 F H 119 H 18 135/86 H 95 03/10/19 12:41 03/10/19 12:41 03/10/19 12:41 03/10/19 12:41 03/10/19 12:41 Doctor's Discharge - Discharge Referrals: SIMON DUMONT MD [Primary Care Provider] - Follow up as needed
--- NOTE | 2019-03-10 14:07 | RADIOLOGY REPORT (SQ) ---
EXAM DESCRIPTION: CHEST 2 VIEWS COMPLETED DATE/TIME: 03/10/2019 1:58 pm REASON FOR STUDY: cough, fever COMPARISON: None. NUMBER OF VIEWS: Two view. TECHNIQUE: Frontal and lateral radiographic views of the chest acquired. LIMITATIONS: None. FINDINGS: LUNGS AND PLEURA: No opacities, masses or pneumothorax. No pleural effusion. Attenuated bl ood vessels and flattened tk-diaphragms. MEDIASTINUM AND HILAR STRUCTURES: No masses. No contour abnormalities. HEART AND VASCULAR STRUCTURES: Heart normal in size and contour. No evidence for failure. BONES: No acute findings. HARDWARE: None in the chest. OTHER: No other significant finding. IMPRESSION: COPD. NO ACUTE RADIOGRAPHIC FINDING IN THE CHEST. TECHNICAL DOCUMENTATION: JOB ID: [id number] [email or web address]- All Rights Reserved Reading location - IP/workstation name: [email or web address]
[2019-03-10 14:44] LABS: ALANINE AMINOTRANSFERASE 25 U/L (9-52); ALBUMIN 3.5 g/dL (3.5-5.0); ALKALINE PHOSPHATASE 94 U/L (38-126); ANION GAP 12 (5-19); ASPARTATE AMINO TRANSFERASE 64 U/L (14-36); BILIRUBIN,DIRECT 0.3 mg/dL (0.0-0.4); BILIRUBIN,TOTAL 0.5 mg/dL (0.2-1.3); BLOOD UREA NITROGEN 4 mg/dL (7-20); CALCIUM 9.1 mg/dL (8.4-10.2); CARBON DIOXIDE 18 mmol/L (22-30); CHLORIDE 99 mmol/L (98-107); GLUCOSE 102 mg/dL (75-110); POTASSIUM 4.5 mmol/L (3.6-5.0); SODIUM 129.1 mmol/L (137-145); TOTAL PROTEIN 6.5 g/dL (6.3-8.2)
[2019-03-10 15:21] LABS: VENOUS BLOOD BASE EXCESS -1.2 mmol/L; VENOUS BLOOD HCO3 22.6 mmol/L (20-32); VENOUS BLOOD PCO2 35.3 mmHg (35-63); VENOUS BLOOD PH 7.43 (7.30-7.42)
[2019-03-10 15:42] LABS: ABSOLUTE LYMPHOCYTES (AUTO) 0.5 10^3/uL (0.5-4.7); ABSOLUTE MONOCYTES (AUTO) 0.1 10^3/uL (0.1-1.4); ABSOLUTE NEUT (AUTO) 1.6 10^3/uL (1.7-8.2); BASOPHILS % (AUTO) 0.9 % (0-2); EOSINOPHILS % (AUTO) 0.3 % (0-6); HEMATOCRIT 35.6 % (36.0-47.0); HEMOGLOBIN 12.2 g/dL (12.0-15.5); LYMPHOCYTES % (AUTO) 24.1 % (13-45); MEAN CORPUSCULAR HGB CONC 34.2 g/dL (32.0-36.0); MEAN CORPUSCULAR VOLUME 99 fl (80-97); MONOCYTES % (AUTO) 4.1 % (3-13); PLATELET COUNT 120 10^3/uL (150-450); RED BLOOD COUNT 3.58 10^6/uL (3.72-5.28); RED CELL DISTRIBUTION WIDTH 13.4 % (11.5-14.0); SEGMENTED NEUTROPHILS % (AUTO) 70.6 % (42-78); TOTAL CELLS COUNTED % (AUTO) 100 %; WHITE BLOOD COUNT 2.2 10^3/uL (4.0-10.5)
[2019-03-10 15:45] LABS: INTERNATIONAL RATION (INR) 0.95; PROTHROMBIN TIME 13.2 SEC (11.4-15.4)
[2019-03-10] MEDS ORDERED: MORPHINE SULFATE 10 MG/ML INJ IV ONE (15:57)
[2019-03-10] MEDS ORDERED: ONDANSETRON HCL INJ/PF 4 MG/2 ML SDV IV ONE (15:57)
[2019-03-10 16:55] LABS: APPEARANCE,URINE CLEAR; BILIRUBIN,URINE NEGATIVE (NEGATIVE); COLOR,URINE YELLOW; GLUCOSE, URINE NEGATIVE (NEGATIVE); KETONES,URINE NEGATIVE (NEGATIVE); LEUKOCYTE ESTERASE,URINE NEGATIVE (NEGATIVE); NITRITE,URINE NEGATIVE (NEGATIVE); PROTEIN,URINE NEGATIVE (NEGATIVE); URINE SPECIFIC GRAVITY 1.005; UROBILINOGEN,URINE NEGATIVE mg/dL (<2.0)
--- NOTE | 2019-03-10 17:45 | EKG REPORT ---
SEVERITY:- NORMAL ECG - SINUS RHYTHM : Confirmed by: Aric Butler 10-Mar-2019 17:43:49
[2019-03-10] MEDS ORDERED: LIDOCAINE 1% INJ-PF (10 MG/ML) 30 ML SDV INJ ONE (19:09)
--- NOTE | 2019-03-10 20:44 | ER Document Report ---
ED General - General Chief Complaint: Pain Stated Complaint: NECK AND SHOULDER PAIN Time Seen by Provider: 03/10/19 13:11 Primary Care Provider: YARI CM MD [ACTIVE STAFF] - Follow up as needed SIMON DUMONT MD [ACTIVE STAFF] - Follow up as needed Mode of Arrival: Wheelchair TRAVEL OUTSIDE OF THE [place] IN LAST 30 DAYS: No - HPI Notes: Patient is a 49-year-old female who presents to the emergency department for evaluation. She has a history of chronic neck pain. She states over the last week is been significantly worse. She states headache earlier in the week but it seems to be gone. She has intermittent left arm numbness, prior diagnosis of radiculopathy, that is seem to be more frequent over the last several days. She states that she called EMS because of her pain, but noticed that she was chilled and had a fever prior to their arrival. She is been taking ibuprofen rather liberally in an effort to control her pain. She said no nausea or vomiting. No visual changes. Moving arms and legs without difficulty. She denies any recent head trauma. No sore throat. - Related Data Allergies/Adverse Reactions: Penicillins Allergy (Verified 03/10/19 13:05) ketorolac tromethamine [From Toradol] Adverse Reaction (Verified 03/10/19 13:05) itching bees Allergy (Uncoded 03/10/19 13:05) Past Medical History - General Information source: Patient - Social History Smoking Status: Current Every Day Smoker Frequency of alcohol use: Social Family History: COPD Patient has suicidal ideation: No Patient has homicidal ideation: No - Past Medical History Cardiac Medical History: Denies: Hx Coronary Artery Disease, Hx Heart Attack, Hx Hypertension Pulmonary Medical History: Reports: Hx Bronchitis, Hx COPD, Hx Pneumonia Denies: Hx Asthma, Hx Tuberculosis Neurological Medical History: Denies: Hx Cerebrovascular Accident, Hx Seizures Renal/ Medical History: Denies: Hx Peritoneal Dialysis Malignancy Medical History: Reports: Hx Breast Cancer GI Medical History: Reports: Hx Hepatitis Musculoskeletal Medical History: Denies Hx Arthritis Psychiatric Medical History: Denies: Hx Depression Infectious Medical History: Reports: Hx Hepatitis Past Surgical History: Reports: Hx Mastectomy, Hx Orthopedic Surgery - right foot, Hx Tubal Ligation. Denies: Hx Pacemaker - Immunizations Hx Diphtheria, Pertussis, Tetanus Vaccination: Yes Review of Systems - Review of Systems Constitutional: See HPI EENT: No symptoms reported Cardiovascular: No symptoms reported Respiratory: No symptoms reported Gastrointestinal: No symptoms reported Genitourinary: No symptoms reported Musculoskeletal: See HPI Skin: No symptoms reported Neurological/Psychological: No symptoms reported Physical Exam - Vital signs Vitals: Temp Pulse Resp BP Pulse Ox 103.0 F H 119 H 18 135/86 H 95 03/10/19 12:41 03/10/19 12:41 03/10/19 12:41 03/10/19 12:41 03/10/19 12:41 - Notes Notes: Vital signs reviewed, please refer to chart. Head is normocephalic, atraumatic. Pupils equal round, reactive to light. Heart is regular rate and rhythm. Lungs are clear to auscultation bilaterally. Abdomen is soft, nontender, normoactive bowel sounds throughout. Extremities without cyanosis, clubbing. Posterior calves are nontender. Peripheral pulses are equal. Skin is warm and dry. Examination of the cervical spine is no midline tenderness step-off. She is paraspinal musculature tenderness with increased muscle spasm and tenderness throughout bilaterally. Negative Kernig's and Brudzinski's. Patient is awake and alert, oriented x3. Cranial nerves II through XII are grossly intact without focal neurological deficits. Strength is plus 5 out of 5 bilateral lower extremities. Sensation is intact. Reflexes symmetrical. Intact [id number], rapid altering movements, [id number]. Course - Re-evaluation Re-evalutation: 03/10/19 20:42 Patient presents emergency department for evaluation. Upon arrival she is found to be febrile. She really only has neck pain as a prior complaint, but she states that this is just a mild worsening of her chronic pain. For this reason general blood work and imaging were ordered. Blood work did reveal a mildly low white count at 2.2. Her chest x-ray is negative. Urinalysis revealed trace blood but no other significant signs of infection. She has no urinary symptoms. Because no clear source of infection was found, decision was made to proceed with lumbar puncture. She procedure note. Patient tolerated this well. Awaiting LP results at this time. 03/10/19 21:42 CSF results are entirely unremarkable. Patient continues to have some neck pain, otherwise has improved. We will send her home with a small amount of pain medication. She is to take ibuprofen as needed for pain and fevers. The importance of close follow-up was stressed. I explained to the patient I do not have a clear etiology for her fever at this time. Her CSF shows no signs of infection. She has no neurological deficits. Chest x-ray and urinalysis are unremarkable. Her fever is improved. She is advised on supportive care and close follow-up. She voiced understanding and was discharged. 03/10/19 21:43 - Vital Signs Vital signs: Temp Pulse Resp BP Pulse Ox 97.9 F 85 18 121/68 89 L 03/10/19 21:02 03/10/19 21:02 03/10/19 12:41 03/10/19 21:02 03/10/19 21:02 - Laboratory Result Diagrams: 03/10/19 15:10 03/10/19 13:30 Laboratory results interpreted by me: 03/10/19 03/10/19 03/10/19 13:30 14:02 15:10 WBC 2.2 L RBC 3.58 L Hct 35.6 L MCV 99 H MCH 34.0 H Plt Count 120 L Absolute Neutrophils 1.6 L VBG pH Sodium 129.1 L Carbon Dioxide 18 L BUN 4 L POC Glucose 116 H AST 64 H Urine Blood 03/10/19 03/10/19 15:10 16:23 WBC RBC Hct MCV MCH Plt Count Absolute Neutrophils VBG pH 7.43 H Sodium Carbon Dioxide BUN POC Glucose AST Urine Blood MODERATE H - Diagnostic Test Radiology reviewed: Reports reviewed Radiology results interpreted by me: 03/10/19 21:42 Chest X-Ray 03/10/19 13:17 IMPRESSION: COPD. NO ACUTE RADIOGRAPHIC FINDING IN THE CHEST. Procedures - Lumbar Puncture Lumbar puncture Time completed: 20:05 Consent obtained: Yes Lumbar puncture pre-procedure: Sterile PPE donned, Betadine prep applied, Sterile drapes applied Patient position: Sitting Needle size: 22 Lumbar puncture location: L3-4 Anesthetic type: 1% Lidocaine mL's of anesthetic: 3 Amount/type of drainage: 6 cc of clear CSF Number of attempts: 1 Complications: No Discharge - Discharge Clinical Impression: Neck pain Fever Qualifiers: Encounter type: initial encounter Condition: Stable Disposition: HOME, SELF-CARE Instructions: Fever ([facility]), Post Lumbar Puncture ([facility]) Additional Instructions: Take medication as prescribed, using [place] for severe pain, ibuprofen as instructed. Prescriptions: Ibuprofen [Ibu] 600 mg PO Q6H PRN #28 tablet PRN Reason: Referrals: SIMON DUMONT MD [ACTIVE STAFF] - Follow up as needed YARI CM MD [ACTIVE STAFF] - Follow up as needed
[2019-03-10 20:59] LABS: APPEARANCE ALL TUBES CLEAR; COLOR ALL TUBES COLORLESS; CSF TOTAL VOLUME 8.3 CC; CSF TUBE NUMBER 4; RED BLOOD CELL,CSF 0 /uL (0-10); VOLUME TUBE 1 2.5 CC; VOLUME TUBE 2 1.8 CC
[2019-03-10 21:00] LABS: WHITE BLOOD CELL,CSF 1 /uL (0-5)
[2019-03-10 21:01] LABS: GLUCOSE,CSF 69 mg/dL (40-70); PROTEIN,CSF 42 mg/dL (12-60)
[2019-03-10 21:03] LABS: CSF TUBE NUMBER 1
[2019-03-10 21:04] LABS: APPEARANCE ALL TUBES CLEAR; COLOR ALL TUBES COLORLESS; CSF TOTAL VOLUME 8.3 CC; RED BLOOD CELL,CSF 16 /uL (0-10); VOLUME TUBE 1 2.5 CC; VOLUME TUBE 2 1.8 CC
[2019-03-10 21:05] LABS: WHITE BLOOD CELL,CSF 2 /uL (0-5)
[2019-03-10] MEDS ORDERED: HYDROCODONE/ACETAMINOPHEN 5-325 MG (6 TAB/ER DISP) PO PRN (21:44)
[2019-03-10 22:20] VITALS: BP 107/91
== END 2019-03-10 22:20 | disposition home or self-care (01) ==
LOC: ER 12:33
PROC: 00JU3ZZ Inspection of Spinal Canal, Percutaneous Approach (ICD-10-PCS; principal; 2019-03-10)
DX: M54.2 Cervicalgia (principal); M25.512 Pain in left shoulder; M79.602 Pain in left arm; R51 Headache; R50.9 Fever, unspecified; F17.200 Nicotine dependence, unspecified, uncomplicated; J44.9 Chronic obstructive pulmonary disease, unspecified
CPT/HCPCS: 93005; 99284; 96361; 96374; 96375; 36415; 87040; 87070; 87086; 87205; 82962; 84703; 85025; 85610; 89050; 82945; 84157; 80053; 81001; 82803; 83605; 71046; 93010; 62270; J3490; J2270; J2405; J7030

== ENCOUNTER 2019-04-12 19:52 | Emergency (ER) | payer MEDICAID ==
[2019-04-12] MEDS ORDERED: NORMAL SALINE 1000 ML 1,000 ML IV ONE (20:23)
--- NOTE | 2019-04-12 20:30 | ER Document Report ---
ED General - General Chief Complaint: Syncope Stated Complaint: POSSIBLE SYNCOPAL EPISODE Time Seen by Provider: 04/12/19 20:14 Primary Care Provider: [facility] [Provider Group] - Follow up as needed Notes: Patient is a 49-year-old female with a past medical history of alcohol dependency, COPD with tobacco dependency, breast cancer status post mastectomy, that comes by EMS for chief complaint of unresponsiveness. EMS is unsure who called by report, they suspect his sister, patient cannot remember the events leading up to the hospital, she states she remembers getting on her couch this evening and that is all she can remember. Patient admits she has been drinking "a lot". There is no reported trauma, patient denies any locations of pain at this time. Patient had an initial oxygen saturation of 77% on room air, EMS did give 1 mg of Narcan. Patient is alert on my evaluation, responsive, convers ational. She states that she has not used any recreational drugs other than marijuana a few days ago, she denies being prescribed pain medication. When asked if she gets withdrawals from alcohol if she stops she indicates she does. TRAVEL OUTSIDE OF THE [place] IN LAST 30 DAYS: No - Related Data Allergies/Adverse Reactions: Penicillins Allergy (Verified 03/10/19 13:05) ketorolac tromethamine [From Toradol] Adverse Reaction (Verified 03/10/19 13:05) itching bees Allergy (Uncoded 03/10/19 13:05) Past Medical History - General Information source: Patient - Social History Smoking Status: Never Smoker Frequency of alcohol use: None Drug Abuse: None Lives with: Family Family History: COPD - Past Medical History Cardiac Medical History: Denies: Hx Coronary Artery Disease, Hx Heart Attack, Hx Hypertension Pulmonary Medical History: Reports: Hx Bronchitis, Hx COPD, Hx Pneumonia Denies: Hx Asthma, Hx Tuberculosis Neurological Medical History: Denies: Hx Cerebrovascular Accident, Hx Seizures Renal/ Medical History: Denies: Hx Peritoneal Dialysis Malignancy Medical History: Reports: Hx Breast Cancer GI Medical History: Reports: Hx Hepatitis Musculoskeletal Medical History: Denies Hx Arthritis Psychiatric Medical History: Denies: Hx Depression Infectious Medical History: Reports: Hx Hepatitis Past Surgical History: Reports: Hx Mastectomy, Hx Orthopedic Surgery - right foot, Hx Tubal Ligation. Denies: Hx Pacemaker - Immunizations Hx Diphtheria, Pertussis, Tetanus Vaccination: Yes Review of Systems - Review of Systems Constitutional: See HPI EENT: No symptoms reported Cardiovascular: No symptoms reported Respiratory: See HPI Gastrointestinal: No symptoms reported Genitourinary: No symptoms reported Female Genitourinary: No symptoms reported Musculoskeletal: No symptoms reported Skin: No symptoms reported Hematologic/Lymphatic: No symptoms reported Neurological/Psychological: See HPI Physical Exam - Vital signs Vitals: Resp Pulse Ox 20 97 04/12/19 19:58 04/12/19 19:58 - Notes Notes: GENERAL: Slurred speech, somewhat drowsy, appears intoxicated, not in distress. Still follows directions. HEAD: Normocephalic, atraumatic. EYES: Pupils equal, round, and reactive to light. Extraocular movements intact. ENT: Oral mucosa dry, tongue midline. Oropharynx unremarkable. Airway patent. NECK: Full range of motion. Supple. Trachea midline. LUNGS: Clear to auscultation bilaterally, no wheezes, rales, or rhonchi. No respiratory distress. HEART: Regular rate and rhythm. No murmur ABDOMEN: Soft, non-tender. Non-distended. Bowel sounds present in all 4 quadrants. GENITOURINARY: Deferred EXTREMITIES: Moves all 4 extremities spontaneously. No edema, normal radial and dorsalis pedis pulses bilaterally. No cyanosis. BACK: no cervical, thoracic, lumbar midline tenderness. No saddle anesthesia, normal distal neurovascular exam. Moves all extremities in full range of motion. NEUROLOGICAL: Oriented to person and place but not to events. Slurred speech. Cranial nerves II through XII grossly intact. PSYCH: Irritable SKIN: Warm, dry, normal turgor. No rashes or lesions noted. Course - Re-evaluation Re-evalutation: Patient is clinically intoxicated with slurring of speech, however she is alert, oriented to everything but recent events. GCS of 15. She is not hypoxic. She will be placed on monitor, oxygen if needed for when she is sleeping, work-up pending, she will be closely monitored. Patient reevaluated, unchanged from prior. Work-up is still pending. 04/12/19 21:56 Patient pulled off her oxygen and is sleeping soundly. Her oxygen saturation is 93% on room air and she does not have apnea. Her drug screen is negative, there does not appear to be any involved opiates, appears to be strictly heavy alcohol use in the setting of COPD. Patient reevaluated twice more, she was able to get up and use the bathroom but was very unsteady on her feet and continues to slur her words. Laboratory work- up unremarkable except for heavy intoxication. Chest x-ray unremarkable. 04/13/19 01:39 Patient is finally steady on her feet without slurring her words, alert, oriented, clinically sober. She is requesting for a cab to be called so she can leave. She does not want a ride from a family member, she wants to go home in a cab. She shows that she has a platt for this. Because she is clinically sober she will have the cab called, I did discuss the extreme dangers of heavy intoxication, explained that she could drink, have respiratory suppression, and . Recommended detox, referral placed. Patient states understanding. - Vital Signs Vital signs: Temp Pulse Resp BP Pulse Ox 98.1 F 17 122/85 94 04/12/19 20:53 04/13/19 01:01 04/12/19 21:01 04/13/19 01:01 - Laboratory Result Diagrams: 04/12/19 21:05 04/12/19 21:05 Laboratory results interpreted by me: 04/12/19 04/12/19 04/12/19 20:05 21:05 21:05 MCH 33.5 H Seg Neuts % (Manual) 19 L Lymphocytes % (Manual) 75 H Monocytes % (Manual) 1 L Abs Neuts (Manual) 1.3 L Abs Lymphs (Manual) 5.3 H Sodium 136.3 L Carbon Dioxide 21 L BUN 4 L Creatinine 0.48 L AST 103 H Urine Blood MODERATE H Serum Alcohol 391 H* Discharge - Discharge Clinical Impression: Alcohol intoxication Qualifiers: Complication of substance-induced condition: with unspecified complication Qualified Code(s): F10.929 - Alcohol use, unspecified with intoxication, unspecified Condition: Stable Disposition: HOME, SELF-CARE Additional Instructions: On your evaluation tonight you were overly and even dangerously intoxicated. Avoid becoming severely intoxicated because of the risk of , also follow-up with the listed referral for additional management including detox placement/referral. Return for any concerning symptoms or something is not right. Referrals: [facility] [Provider Group] - Follow up as needed
[2019-04-12 21:04] VITALS: BP 122/85
[2019-04-12 21:06] LABS: APPEARANCE,URINE CLEAR; BILIRUBIN,URINE NEGATIVE (NEGATIVE); COLOR,URINE STRAW; GLUCOSE, URINE NEGATIVE (NEGATIVE); KETONES,URINE NEGATIVE (NEGATIVE); LEUKOCYTE ESTERASE,URINE NEGATIVE (NEGATIVE); NITRITE,URINE NEGATIVE (NEGATIVE); PROTEIN,URINE NEGATIVE (NEGATIVE); URINE SPECIFIC GRAVITY 1.004; UROBILINOGEN,URINE NEGATIVE mg/dL (<2.0)
[2019-04-12 21:20] LABS: URINE AMPHETAMINES SCREEN NEGATIVE; URINE BARBITURATES SCREEN NEGATIVE; URINE BENZODIAZEPINES SCREEN NEGATIVE; URINE COCAINE SCREEN NEGATIVE; URINE MARIJUANA (THC) SCREEN NEGATIVE; URINE METHADONE SCREEN NEGATIVE; URINE PHENCYCLIDINE SCREEN NEGATIVE
[2019-04-12 21:25] LABS: HEMATOCRIT 43.9 % (36.0-47.0); HEMOGLOBIN 15.3 g/dL (12.0-15.5); MEAN CORPUSCULAR HEMOGLOBIN 33.5 pg (27.0-33.4); MEAN CORPUSCULAR HGB CONC 34.8 g/dL (32.0-36.0); MEAN CORPUSCULAR VOLUME 96 fl (80-97); PLATELET COUNT 177 10^3/uL (150-450); RED BLOOD COUNT 4.56 10^6/uL (3.72-5.28)
[2019-04-12 21:43] LABS: ALANINE AMINOTRANSFERASE 33 U/L (9-52); ALBUMIN 4.2 g/dL (3.5-5.0); ALKALINE PHOSPHATASE 103 U/L (38-126); ANION GAP 13 (5-19); ASPARTATE AMINO TRANSFERASE 103 U/L (14-36); BILIRUBIN,DIRECT 0.3 mg/dL (0.0-0.4); BILIRUBIN,TOTAL 0.3 mg/dL (0.2-1.3); BLOOD UREA NITROGEN 4 mg/dL (7-20); CALCIUM 8.6 mg/dL (8.4-10.2); CARBON DIOXIDE 21 mmol/L (22-30); CHLORIDE 102 mmol/L (98-107); GLUCOSE 89 mg/dL (75-110); SODIUM 136.3 mmol/L (137-145); TOTAL PROTEIN 7.3 g/dL (6.3-8.2)
[2019-04-12 22:00] LABS: ABSOLUTE LYMPHOCYTES# (MANUAL) 5.3 10^3/uL (0.5-4.7); ABSOLUTE MONOCYTES # (MANUAL) 0.1 10^3/uL (0.1-1.4); ALCOHOL 391 mg/dL (NONE DETECTED); BASOPHILS % (MANUAL) 0 % (0-2); EOSINOPHILS % (MANUAL) 5 % (0-6); MONOCYTES % (MANUAL) 1 % (3-13); SEGMENTED NEUTROPHILS % (MAN) 19 % (42-78); TOTAL CELLS COUNTED 100
[2019-04-12 22:01] LABS: RBC MORPHOLOGY COMMENT NORMO-CYTIC/CHROMIC
[2019-04-12 22:05] LABS: LYMPHOCYTES % (MANUAL) 75 % (13-45); PLATELET COMMENT ADEQUATE
--- NOTE | 2019-04-12 22:06 | RADIOLOGY REPORT (SQ) ---
EXAM DESCRIPTION: [facility]: XR CHEST 1 VIEW CLINICAL HISTORY: 49 years Female, hypoxia COMPARISON: None. FINDINGS: Lucencies in both upper lobes are similar to prior exam, typical for emphysema. No acute infiltrate. No pneumothorax or pleural effusion. Mediastinum is within normal limits for this positioning. Old bilateral rib fractures are again noted. No acute bone findings. No chest wall surgical clip is again noted. IMPRESSION: 1. No acute pulmonary findings.
--- NOTE | 2019-04-12 23:21 | EKG REPORT ---
SEVERITY:- BORDERLINE ECG - SINUS RHYTHM PROBABLE LEFT ATRIAL ABNORMALITY : Confirmed by: Aric Butler 12-Apr-2019 23:20:38
[2019-04-13 13:42] LABS: PATH REVIEW PATHOLOGIST REVIEWED
== END 2019-04-13 01:40 | disposition home or self-care (01) ==
LOC: ER 19:52
DX: F10.929 Alcohol use, unspecified with intoxication, unspecified (principal); R55 Syncope and collapse; J44.9 Chronic obstructive pulmonary disease, unspecified; Z98.51 Tubal ligation status; Z90.10 Acquired absence of unspecified breast and nipple; Z85.3 Personal history of malignant neoplasm of breast; Z88.0 Allergy status to penicillin
CPT/HCPCS: 36415; 71045; 80053; 80307; 81001; 84703; 85025; 93005; 93010; 99284